=== PATIENT | male | born 1990 | race Caucasian/White ===

== ENCOUNTER 2017-08-13 07:41 | Emergency (ER) | payer OTHER, SELFPAY ==
[2017-08-13 07:41] VITALS: BP 187/116; PULSE 107; RESP 16; TEMP 36.4; O2SAT 96; BMI 40.8
--- NOTE | 2017-08-13 08:04 | ED.DCSUM_ITS ---
- ER Visit Summary Date of Service: 08/13/17 Chief Complaint: [Right eye discomfort and drainage] History of Present Illness: The patient is a 26 M [presents the emergency department with discomfort to his right eye that started yesterday. Patient denies any trauma. Patient denies recent illness. Patient has discomfort when he touches the right upper eyelid. Patient has not had any fever.] Physical Examination: [HEENT-PERRLA, EOMI. Cranial nerves II through XII grossly intact. TMs clear. Mucous membranes moist. No adenopathy. Right upper eyelid has edema and erythema. Patient has some tenderness to palpation over the lateral upper eyelid. No discrete abscess or stye noted at this time. Cardiovascular-regular rate and rhythm without murmur or ectopy Lungs-clear to auscultation, chest wall stable without crepitus or subcu emphysema Abdomen-normoactive bowel sounds, soft, nontender, no rebound or rigidity, no peritoneal signs. Extremities-intact ?4, normal range of motion, normal pulses, atraumatic] Test Results: [None indicated] Emergency Department Course and Treatment: [Patient was started on gentamicin ophthalmic ointment] Treatment Plan: [Patient will start gentamicin ophthalmic ointment and I will write a prescription for Keflex to start only if symptoms progress or worsen. Patient will be given a referral to ophthalmology motion pictures cartoonist for follow-up within next 3-5 days. I suspect patient likely has early beginnings of a stye.] Disposition: [Discharge to home in stable condition] Impression: [Stye right upper eyelid] This note was generated with [employer] dictation software. It may contain incorrect words, spelling, and punctuation that were not noted in review of the chart prior to signing ED Disposition - Plan for ED Patient: Chief Complaint: Eye Problem Referrals: Nato Mahmood MD [Primary Care Provider] -
--- NOTE | 2017-08-13 08:04 | ED.DEP ---
ED Disposition - Plan for ED Patient: Chief Complaint: Eye Problem Instructions: ED Chalazion Prescriptions: Cephalexin [Keflex] 500 mg PO Q6 #40 cap Referrals: Nato Mahmood MD [Primary Care Provider] - Charly Gacria MD [STAFF PHYSICIAN] - 3-5 Days
== END 2017-08-13 08:10 | disposition home or self-care (01) ==
LOC: ED 08:08
PROVIDERS: Emergency Provider Emergency Medicine; Family Provider Family Medicine; PCP Family Medicine
DX: H00.021 Hordeolum internum right upper eyelid (principal); F17.220 Nicotine dependence, chewing tobacco, uncomplicated; Z79.899 Other long term (current) drug therapy
CPT/HCPCS: 99283

== ENCOUNTER → 2018-05-22 08:19 | Outpatient (CLI) | payer OTHER, SELFPAY | PROVIDERS: Family Provider Family Medicine; PCP Family Medicine; Referring Provider Family Medicine; Visit Provider Family Medicine | DX: G47.33 Obstructive sleep apnea (adult) (pediatric) (principal) | CPT/HCPCS: 95806 ==

== ENCOUNTER 2018-06-10 10:54 | Emergency (ER) | payer OTHER, SELFPAY ==
[2018-06-10 10:56] VITALS: BP 181/100; BP 181/105; PULSE 88; PULSE 93; RESP 17; RESP 18; TEMP 36.7; O2SAT 96; O2SAT 98
--- NOTE | 2018-06-10 11:11 | RAD_ITS ---
STUDY: X-RAY - LEFT FOOT CLINICAL: Male, 27 years old. Pain. Possible foreign body. TECHNIQUE: 3 view(s) of the foot. COMPARISON: None. FINDINGS: There is a plantar calcaneal spur. Normal visualized subtalar, talonavicular, calcaneocuboid, tarsal and tarsometatarsal articulations. Normal metatarsi. Normal metatarsophalangeal joint of the great toe. Normal tibial and fibular sesamoid bones. Normal interphalangeal joint of the great toe. Normal phalanges of the great toe. Normal second through fifth metatarsophalangeal joints. Normal interphalangeal joints and phalanges of the lesser toes. The soft tissue structures are unremarkable. RAD/Foot min 3 Views IMPRESSION: No acute abnormality is seen. Electronically Signed: Gus Marcus MD at 11:35 EST , Service support ,
--- NOTE | 2018-06-10 11:16 | ED.VISSUMM ---
- ER Visit Summary Date of Service: 06/10/18 Chief Complaint: Stepped on a sea urchin with left foot pain History of Present Illness: The patient is a 27 M no significant past medical history. Patient was vacationing in [place] and stepped on a severe chin on Friday. He removed several spikes in the bottom of his foot. He has had some pain in the bottom of his foot since that time. He is concerned it may be additional spikes in the bottom of his foot. No discharge. No significant swelling. Physical Examination: Well-appearing young male. Vital signs are well. No acute distress. H EENT exam unremarkable. Neck nontender. Lungs clear to auscultation bilaterally. Heart is regular rate and rhythm no murmur. Abdomen soft and nontender. Patient is moving all 4 extremities. They are neurovascularly intact. The bottom of his left foot and the mid portion area there are multiple small puncture wounds. I do not feel any obvious or see any obvious foreign bodies. There is no obvious cellulitis. Minimal tenderness. No gross bony deformity. Left foot is neurovascularly intact. Normal DP pulse. Test Results: Left foot x-ray 3 views show signs of any type of foreign body. There is a calcification and may be old avulsion fracture or just a calcification. I went over the films with the patient. I explained to him that no foreign bodies were seen. Emergency Department Course and Treatment: Patient be started on Keflex 500 4 times daily for 7 days. Follow-up with a press clippings cutter and paster if not improving. Treatment Plan: Keflex 4 times daily for 7 days. Disposition: Discharge Impression: Left foot puncture wounds after stepping on a see urchin This note was generated with [employer] dictation software. It may contain incorrect words, spelling, and punctuation that were not noted in review of the chart prior to signing ED Disposition - Plan for ED Patient: Referrals: Nato Mahmood MD [Primary Care Provider] -
--- NOTE | 2018-06-10 11:19 | ED.DCSUM_ITS ---
- ER Visit Summary Date of Service: 06/10/18 Chief Complaint: Stepped on a sea urchin with left foot pain History of Present Illness: The patient is a 27 M no significant past medical history. Patient was vacationing in [place] and stepped on a severe chin on Friday. He removed several spikes in the bottom of his foot. He has had some pain in the bottom of his foot since that time. He is concerned it may be additional spikes in the bottom of his foot. No discharge. No significant swelling. Physical Examination: Well-appearing young male. Vital signs are well. No acute distress. H EENT exam unremarkable. Neck nontender. Lungs clear to auscultation bilaterally. Heart is regular rate and rhythm no murmur. Abdomen soft and nontender. Patient is moving all 4 extremities. They are neurovascularly intact. The bottom of his left foot and the mid portion area there are multiple small puncture wounds. I do not feel any obvious or see any obvious foreign bodies. There is no obvious cellulitis. Minimal tenderness. No gross bony deformity. Left foot is neurovascularly intact. Normal DP pulse. Test Results: Left foot x-ray 3 views show signs of any type of foreign body. There is a calcification and may be old avulsion fracture or just a calcification. I went over the films with the patient. I explained to him that no foreign bodies were seen. Emergency Department Course and Treatment: Patient be started on Keflex 500 4 times daily for 7 days. Follow-up with a lining maker if not improving. Treatment Plan: Keflex 4 times daily for 7 days. Disposition: Discharge Impression: Left foot puncture wounds after stepping on a see urchin This note was generated with [employer] dictation software. It may contain incorrect words, spelling, and punctuation that were not noted in review of the chart prior to signing ED Disposition - Plan for ED Patient: Referrals: Nato Mahmood MD [Primary Care Provider] -
--- NOTE | 2018-06-10 11:41 | ED.DEP ---
ED Disposition - Plan for ED Patient: Disposition: Home or Assisted Living Instructions: ED Wound Puncture Foot Prescriptions: Cephalexin [Keflex] 500 mg PO Q6 #30 cap Referrals: Florentin Santa DPM [STAFF PHYSICIAN] - 1 Week if not improving Additional Instructions: Keflex 1 pill 4 times a day due to the puncture wounds and high risk of potential infection. On your x-ray no foreign bodies were noted. Sometimes foreign bodies cannot be picked up on x-ray. If this does not improve you need to follow-up with a local supervisor frame sample and pattern to have him reevaluate your foot.
[2018-06-10 11:46] VITALS: RESP 16
--- NOTE | 2018-06-10 11:47 | ED.RN ---
pt informed of elevated blood pressure, reports history of htn.
== END 2018-06-10 11:48 | disposition home or self-care (01) ==
PROVIDERS: Emergency Provider Emergency Medicine; Family Provider Family Medicine; PCP Family Medicine
DX: S91.332A Puncture wound without foreign body, left foot, initial encounter (principal); F32.9 Major depressive disorder, single episode, unspecified; Z72.0 Tobacco use; Z79.899 Other long term (current) drug therapy; W56.89XA Other contact with other nonvenomous marine animals, initial encounter; Y93.01 Activity, walking, marching and hiking; Y92.832 Beach as the place of occurrence of the external cause; Y99.8 Other external cause status
CPT/HCPCS: 73630; 99281

== ENCOUNTER → 2018-11-02 | Outpatient (CLI) | payer OTHER, SELFPAY ==
[2018-11-02 08:05] LABS: Bacteria 0 SEEN /hpf (None Seen); Mucous, Urine 0 SEEN /hpf (<or=2+); Red Blood Cells-Urine 0 SEEN /hpf (0-5); Squamous Epithelial Cells - UA 0 SEEN /hpf (0-5)
[2018-11-02 08:53] LABS: Absolute Neutrophil Count 3.7 X10^3/uL (2.0-7.7); Basophil# 0.07 X10^3/uL; Basophil% 0.8 % (0-1); Eosinophil# 0.21 X10^3/uL; Eosinophils% 2.5 % (0-5); Hematocrit 48.1 % (40-54); Hemoglobin 16.4 g/dl (13.0-16.5); Lymphocyte % 42.1 % (19-41); Mean Corp Hgb Conc 34.1 g/gl (32-36); Mean Corpuscular Hgb 29.7 pg (27.0-32.0); Mean Corpuscular Volume 87.1 fL (80-94); Mean Platelet Vol. 11.1 fl (6.2-12.0); Monocyte# 0.81 X10^3/uL; Monocyte% 9.7 % (0-10); Neutrophil % 44.5 % (47-70); POSITIVE COUNT NO; POSITIVE DIFFERENTIAL NO; POSITIVE MORPHOLOGY NO; Platelet Count 335 K/mm3 (150-450); RBC Distribution Width CV 12.8 % (11.6-14.6); RBC Distribution Width SD 40.6 fl (35.1-43.9); Red Blood Count 5.52 M/mm3 (4.6-6.2); White Blood Count 8.3 K/mm3 (4.4-11.0)
[2018-11-02 09:21] LABS: Color, Urine Yellow (Yellow); Glucose, Dipstick Normal (Normal); Ketone-Dipstick Negative (Negative); Leukocyte Esterase-Dipstick 25 /ul (Negative); Nitrite-Dipstick Negative (Negative); Occult Blood-Urine Negative /ul (Negative); Protein-Dipstick 15 mg/dl (Negative); Urine Bilirubin Dipstick Negative (Negative); Urine Clarity Clear (Clear); Urine Urobilinogen Normal (Normal)
[2018-11-02 09:28] LABS: ALB/GLOB Ratio 1.2 RATIO (0.9-2.4); AST(SGOT) 33 U/L (15-37); Alanine Aminotransfer ALT/SGPT 93 U/L (16-61); Albumin, Serum 4.3 g/dL (3.2-5.0); Alkaline Phosphatase 81 U/L (45-117); Anion Gap 6 (5-15); BUN 17 mg/dL (7-18); BUN/Creat Ratio 17.6 RATIO (10-20); Calcium,Total 9.4 mg/dL (8.5-10.1); Chloride 102 mmol/L (98-107); Cholesterol 260 mg/dL (200); Creatinine, Serum 0.97 mg/dL (0.70-1.30); EST Glomerular Filtration Rate 97 mL/min (>60); Est Glom Filt Rate - Afr Amer 117 mL/min (>60); Globulin 3.7 g/dL (2.2-4.2); Glucose 87 mg/dL (74-106); High Density Lipoprotein 31 mg/dL; Sodium Level 138 mmol/L (136-145); Triglycerides 454 mg/dL
[2018-11-02 09:29] LABS: White Blood Cells 0-5 SEEN /hpf (0-5)
== END | disposition home or self-care (01) ==
LOC: LAB.FUTURE 08:18
PROVIDERS: Family Provider Family Medicine; PCP Family Medicine; Referring Provider Nurse Practitioner Adult Health; Visit Provider Nurse Practitioner Adult Health
DX: I10 Essential (primary) hypertension (principal); E78.5 Hyperlipidemia, unspecified
CPT/HCPCS: 36415; 80053; 80061; 81001; 85025

== ENCOUNTER → 2019-06-29 | Outpatient (CLI) | payer OTHER, SELFPAY ==
[2019-06-29 16:00] LABS: AST(SGOT) 30 U/L (15-37); Alanine Aminotransfer ALT/SGPT 99 U/L (16-61); Alkaline Phosphatase 71 U/L (45-117); Anion Gap 6 (5-15); BUN 12 mg/dL (7-18); Bilirubin, Direct 0.13 mg/dL (0.00-0.30); Calcium,Total 9.3 mg/dL (8.5-10.1); Chloride 108 mmol/L (98-107); Creatinine, Serum 0.92 mg/dL (0.70-1.30); EST Glomerular Filtration Rate 102 mL/min (>60); Est Glom Filt Rate - Afr Amer 124 mL/min (>60); Globulin 3.4 g/dL (2.2-4.2); Glucose 79 mg/dL (74-106); Potassium 3.7 mmol/L (3.5-5.1); Protein, Total 7.4 g/dL (6.4-8.2); Sodium Level 142 mmol/L (136-145)
== END | disposition home or self-care (01) ==
LOC: MTLAB 11:14
PROVIDERS: PCP Family Medicine; Referring Provider Family Medicine; Visit Provider Family Medicine
DX: I10 Essential (primary) hypertension (principal); R74.8 Abnormal levels of other serum enzymes
CPT/HCPCS: 36415; 80048; 80076

== ENCOUNTER 2023-12-23 17:32 | Inpatient (IN) | payer SELFPAY ==
[2023-12-23 17:39] VITALS: BP 151/100; PULSE 76; RESP 16; TEMP 37; O2SAT 100; BMI 42.1
[2023-12-23] MEDS: Gabapentin 600 MG Tablet PO (21:15)
[2023-12-23] MEDS: oxyCODONE 5 MG Tablet PO (21:15)
[2023-12-23] MEDS: APIXABAN 5 MG TABLET 10 MG PO (21:25)
[2023-12-23 21:58] VITALS: PULSE 96; O2SAT 93
[2023-12-23] MEDS: cycloBENZAPRine HCl 10 MG Tablet PO (22:06)
[2023-12-23] MEDS: Atorvastatin Calcium 20 MG Tablet PO (23:10)
[2023-12-23] MEDS: DULoxetine Hcl 60 MG Capsule PO (23:10)
[2023-12-24 06:00] VITALS: BP 142/86; PULSE 98; RESP 17; TEMP 36.7; O2SAT 96
[2023-12-24 06:23] LABS: Hematocrit 32.1 % (40-54); Hemoglobin 10.4 g/dL (13.0-16.5); Mean Corp Hgb Conc 32.4 g/dL (32-36); Mean Corpuscular Hgb 28.3 pg (27.0-32.0); Mean Corpuscular Volume 87.5 fL (80-94); Mean Platelet Vol. 9.9 fl (6.2-12.0); Platelet Count 290 K/mm3 (150-450); RBC Distribution Width CV 13.3 % (11.6-14.6); RBC Distribution Width SD 41.9 fl (35.1-43.9); Red Blood Count 3.67 M/mm3 (4.6-6.2)
[2023-12-24] MEDS: Gabapentin 600 MG Tablet PO ×3 (06:36→20:09)
[2023-12-24 07:02] LABS: ALB/GLOB Ratio 0.5 RATIO (0.9-2.4); AST(SGOT) 49 U/L (15-37); Alanine Aminotransfer ALT/SGPT 50 U/L (16-61); Albumin, Serum 2.2 g/dL (3.2-5.0); Alkaline Phosphatase 170 U/L (45-117); Anion Gap 7 (5-15); BUN 5 mg/dL (7-18); BUN/Creat Ratio 7.8 RATIO (10-20); Calcium,Total 8.4 mg/dL (8.5-10.1); Chloride 109 mmol/L (98-107); Creatinine, Serum 0.64 mg/dL (0.70-1.30); EST Glomerular Filtration Rate 151 mL/min (>60); Est Glom Filt Rate - Afr Amer 182 mL/min (>60); Globulin 4.4 g/dL (2.2-4.2); Glucose 92 mg/dL (74-106); Magnesium 2.2 mg/dL (1.6-2.6); Phosphorus 3.6 mg/dL (2.5-4.9); Protein, Total 6.6 g/dL (6.4-8.2); Sodium Level 140 mmol/L (136-145)
[2023-12-24] MEDS: APIXABAN 5 MG TABLET 10 MG PO ×2 (08:06→20:07)
[2023-12-24] MEDS: Tamsulosin HCl 0.4 MG Capsule PO (08:06)
[2023-12-24] MEDS: oxyCODONE 5 MG Tablet PO ×2 (08:06→14:13)
[2023-12-24] MEDS: Lisinopril 10 MG Tablet PO (08:06)
[2023-12-24] MEDS: hydroCHLOROthiazide 12.5mg 12.5 MG PO (08:07)
[2023-12-24 09:00] VITALS: O2SAT 94
[2023-12-24] MEDS: cycloBENZAPRine HCl 10 MG Tablet PO ×3 (11:42→23:34)
--- NOTE | 2023-12-24 15:06 | HP.PCM_ITS ---
[facility][1] Date of Admission: 12/23/23 Date of Service: 12/24/23 Chief Complaint: Debility secondary to spinal canal stenosis with myelopathy/neuropathy and recent cervical and thoracic spinal surgery. [facility] Nikolas MARKS, is a 33 YO M with a PMH of anxiety/depression, hypertension, untreated obstructive sleep apnea, chronic back pain, multiple thoracic disc herniations on MRI done in 2017 with compression of the cord at T5-T6 and T10- T11 with no signs of myelomalacia of the cord and L4-L5 mild endplate spondylosis with central disc herniation of extrusion type extending caudally causing indentation of the ventral aspect of the thecal sac with impingement of the left L5 nerve root in the left lateral recess also on a MRI done in 2017. He had been seeing a chiropractor, Dr. Claribel Ramey, and Dr. Graff from orthopedics. On 12/09/2023 he presented to [facility] Complaining of back pain associated with bilateral leg weakness and numbness for the preceding few months. He had had several falls due to his legs giving out. At the time pf presentation he was not able to move his legs. He denied any urine or fecal incontinence and had no saddle anesthesia. He was having urine retention and required straight caths. MRI showed severe spinal canal stenosis at T10-T11, moderate to severe canal stenosis at C5-C6 and C6-C7 and moderate to severe stenosis at L3-L4. He was evaluated by orthopedic spine surgery. On 12/10/23 he had C5-T1 fusion with C5-C7 laminectomy, T10-T12 laminectomy and fusion. Post op complications included BL PE. Venous ultrasounds of the lower extremities was negative. He developed HIT on Heparin and was transitioned to bivalirudin. He also developed a catheter related urinary tract infection with septic shock (requiring pressors) which was treated with intravenous ceftriaxone initially. Prior to discharge from [facility] He was transitioned to [facility]. While at [facility] he was seen by PT/OT and acute inpt rehab was recommended at [place]. Prior to discharge he failed a voiding trial and was placed on Flomax by urology. He was transferred to [facility] inpt rehab on 12/23/23 for 3 hours of therapy daily to restore function/independence at or near his level prior to cord compression. Bruno catheter was in place at [facility]. He has numbness in both LE's and BL leg weakness, L>R leg. He has no fecal incontinence. Tells me that he is having regular BM's. All lab drawn this morning was personally reviewed. The white blood cell count is 8.0 and hemoglobin is 10.4. He has normochromic normocytic indices and platelets are normal at 290,000. Sodium is 140 and potassium is low at 3.0. The BUN is 5 with a creatinine of 0.64. Calcium phosphorus and magnesium are within normal limits. Bilirubin is normal but the AST is mildly elevated at 49 with a normal ALT of 50. Alkaline phosphatase is mildly increased at 170. The overnight trending pulse ox was reviewed. The pulse ox was 90 or above for 61.73% of the time he was monitored. Heart rate was greater than 100 for over 4 hours. He had 3 desaturation events lasting a total of 4 minutes and 26 seconds. He had a sleep study at [facility] in the past and was to see a wire stitcher but, he failed to follow up. [facility] Medical History (Updated 12/26/23 @ 15:[address] Sis Cooper, ) Tobacco dependence Dyslipidemia Anxiety and depression Neurogenic bladder HIT (heparin-induced thrombocytopenia) Septic shock Lumbar disc herniation Hand, foot and mouth disease Segmental and somatic dysfunction of cervical region Segmental and somatic dysfunction of lumbar region Segmental and somatic dysfunction of thoracic region Segmental and somatic dysfunction of pelvic region Obstructive sleep apnea Morbid obesity mole removal back pain neck pain shoulder pain Acute hemorrhoid Hypertension Home Medications ?Medication ?Instructions ?Recorded ?Last Taken ?Type duloxetine 60 mg capsule,delayed 60 mg PO DAILY Depression 08/13/17 Unknown History release cyclobenzaprine 10 mg tablet 10 mg PO TID PRN PRN muscle spasm 12/23/23 Unknown History cyclobenzaprine 10 mg tablet 10 mg PO TID PRN muscle spasm 12/23/23 Unknown History gabapentin 300 mg capsule 600 mg PO Q8H Nerve pain 12/23/23 Unknown History lisinopril 10 1 tab PO DAILY BP 12/23/23 Unknown History mg-hydrochlorothiazide 12.5 mg tablet oxycodone 5 mg tablet 5 mg PO Q6H Pain 12/23/23 Unknown History rosuvastatin 10 mg tablet 10 mg PO DAILY Cholestrol 12/23/23 Unknown History sennosides 8.6 mg-docusate sodium 2 tab-cap PO BID Stool softner 12/23/23 Unknown History 50 mg tablet (Senexon-S) tamsulosin 0.4 mg capsule (Flomax) 0.4 mg PO DAILY Urine retention 12/23/23 Unknown History Allergy/AdvReac Type Severity Reaction Status Date / Time heparin AdvReac Severe Heparin Verified 12/23/23 17:54 induced thrombocytopenia Surgical History (Updated 12/26/23 @ 15:[address] Sis Cooper DO) Status post laminectomy with spinal fusion Social History (Updated 12/26/23 @ 15:[address] Sis Cooper DO) household members: family housing: house number of children: 1 current occupational status: employed Smoking Status: Current every day smoker tobacco type: cigarettes alcohol intake: never ROS Constitutional Constitutional: Reports frequent falls, snoring, stops breathing during sleep and weakness; Denies anorexia, change in weight, chills, fatigue, fever(s), headache(s) or night sweats Eyes Eyes: Denies blurry vision, change in vision, eye pain or loss of vision ENT HEENT: Denies abnormal hearing, dysphagia, headache(s), hearing loss, nasal congestion or sore throat Cardiovascular Cardiovascular: Reports dyspnea on exertion and edema; Denies chest pain, lightheadedness, orthopnea, palpitations, paroxysmal nocturnal dyspnea or syncope Respiratory/Chest Respiratory/Chest: Reports dyspnea on exertion; Denies cough, dyspnea, shortness of breath at rest, shortness of breath with exertion or wheezing Gastrointestinal Gastrointestinal: Denies abdominal pain, constipation, diarrhea, dyspepsia, hematemesis, hematochezia, nausea or vomiting Genitourinary Genitourinary: Reports other Details: Urine retention secondary to neurogenic bladder. Bruno catheter is in place ; Denies dysuria, hematuria, nocturia, urinary frequency, urinary hesitancy, urinary incontinence or urinary urgency Musculoskeletal Musculoskeletal: Reports back pain, muscle cramps, muscle spasms, muscle weakness, neck pain, numbness, radiating pain into limb and tingling; Denies joint pain or joint swelling Integumentary Integumentary: Reports other Details: Scattered petechiae and bruising secondary to HIT ; Denies jaundice, rash or skin pain Neurologic Neurologic: Reports focal weakness and paresthesias; Denies confusion, disequilibrium, dizziness, headache(s), seizures or tremor(s) Psychiatric Psychiatric: Reports anxiety and depression; Denies homicidal ideation or suicidal ideation Endocrine Endocrinology: Denies change in body appearance, polydipsia or polyuria Hematologic/Lymphatic Hematologic/Lymphatic: Denies easy bleeding, easy bruising or lymphadenopathy Allergic/Immunologic Allergic/Immunologic: Denies rhinitis, eczemia or asthma Vital Signs Vital Signs Vital Signs: 12/23/23 17:39 12/23/23 21:58 12/23/23 22:00 Temperature 98.6 F Temperature Source Temporal Pulse Rate 76 96 Pulse Strength Normal (2+) Respiratory Rate 16 Blood Pressure 151/100 H Blood Pressure Mean 117 Blood Pressure Source Monitor Blood Pressure Position Semi-Fowlers Blood Pressure Location Right Arm Pulse Ox 100 93 Oxygen Delivery Method Room Air Fraction of Inspired Oxygen (FIO2) 21 12/24/23 06:00 12/24/23 09:00 Temperature 98.0 F Temperature Source Oral Pulse Rate 98 Pulse Strength Respiratory Rate 17 Blood Pressure 142/86 H Blood Pressure Mean 104 Blood Pressure Source Monitor Blood Pressure Position Sitting Blood Pressure Location Right Arm Pulse Ox 96 94 Oxygen Delivery Method Room Air Fraction of Inspired Oxygen (FIO2) Weight Weight: 319 lb 7.197 oz Body Mass Index (BMI) 42.1 Physical Exam Const alert, oriented x3 and no apparent distress Constitutional Narrative: Making good eye contact, appropriate. [place] J collar is in place. General Appearance: cooperative, comfortable and well kempt HEENT HEENT Narrative: Dry mucous membranes, no evidence of thrush. Eyes PERRL, EOMs intact bilaterally, conjunctivae normal and no scleral icterus Eyes Narrative: No discharge from the eyes and no mattering of the eyelashes. Neck no lymphadenopathy, supple, no JVD and no carotid bruits Neck Narrative: [place] J collar is present. Chest Chest Narrative: Diminished throughout, likely secondary to body habitus. No crackles and no wheezes. No conversational dyspnea. Not tachypneic. Chest: symmetrical chest wall rise Resp normal respiratory effort, no use of accessory muscles and clear to auscultation bilaterally Resp Narrative: Not tachypneic and no conversational dyspnea. Effort and Inspection: able to speak in complete sentences Cardio regular rate, regular rhythm, S1 normal heart sound, S2 normal heart sound, no murmurs, no rub and no gallops Cardio Narrative: Heart sounds are somewhat distant. Resting heart rate is increased but he is not currently tachycardic at rest but, the resting HR is higher than it should be. GI normal to inspection, nondistended, normoactive bowel sounds and non-tender GI Narrative: No guarding with palpation. Narrative: Bruno catheter is in place. The urine in the Bruno catheter is pale yellow and clear. Back/Spine Back/Spine Narrative: He is in a [place] J collar and will be for a total of 6 weeks. Has follow-up scheduled with orthopedic spine surgery. Having pain in the mid thoracic area and posterior cervical area. Extremity Extremity Narrative: No clubbing or cyanosis. Mild distal lower extremity edema. David wrap's are in place. Skin Skin Narrative: No rashes, no skin breakdown. Wound Narrative: The incisions are intact with no dehiscence, no jorgito-incisional erythema and no discharge. Talisha were removed last night. Neuro oriented x3 and CN's II-XII intact bilaterally Neuro Narrative: Bilateral lower extremity weakness, right greater than left. Having tingling/paresthesias in both lower extremities. Having some return of sensation in the right leg, especially the foot and describes as burning. Decreased sensation in both lower extremities. No tremors. Having some myospasm in his distal lower extremities. This improves with cyclobenzaprine. Bruno catheter is in place for neurogenic bladder. Psych affect normal Psych Narrative: Appropriate, making good eye contact. Able to stay on topic and focus. No flight of ideas. Does not appear anxious or depressed. Conversant and relating well to staff. Results Lab / Micro Data 12/24/23 05:16 12/24/23 05:16 Labs: Laboratory Results - last 24 hr 12/24/23 05:16: WBC 8.0, RBC 3.67 L, Hgb 10.4 L, Hct 32.1 L, MCV 87.5, MCH 28.3, MCHC 32.4, RDW Std Deviation 41.9, RDW Coeff of Eduardo 13.3, Plt Count 290, MPV 9.9, Sodium 140, Potassium 3.0 L, Chloride 109 H, Carbon Dioxide 24.0, Anion Gap 7, BUN 5 L, Creatinine 0.64 L, Est GFR (MDRD) Af Amer 182, Est GFR (MDRD) Non-Af 151, BUN/Creatinine Ratio 7.8 L, Glucose 92, Calcium 8.4 L, Phosphorus 3.6, Magnesium 2.2, Total Bilirubin 0.20, AST 49 H, ALT 50, Alkaline Phosphatase 170 H, Total Protein 6.6, Albumin 2.2 L, Globulin 4.4 H, Albumin/Globulin Ratio 0.5 L Assessment & Plan Assessment/Plan (1) Physical debility: (2) Myelopathy concurrent with and due to spinal stenosis of thoracic region: (3) Myelopathy concurrent with and due to spinal stenosis of cervical region: (4) Radicular pain of both lower extremities: (5) Neuropathy: (6) Neurogenic bladder: (7) Status post laminectomy with spinal fusion: (8) Septic shock: (9) Acute blood loss as cause of postoperative anemia: (10) Hypokalemia: (11) Abnormal LFTs: (12) HIT (heparin-induced thrombocytopenia): (13) Bilateral pulmonary embolism: (14) Hypertension: QUALIFIERS: Hypertension type: primary hypertension Qualified Code(s): I10 - Essential (primary) hypertension (15) Obstructive sleep apnea: PLAN: Never treated (16) Morbid obesity: PLAN: BMI is 41. (17) Anxiety and depression: PLAN: On Cymbalta. (18) Tobacco dependence: PLAN: Cigarettes PLAN: Plan PLAN PT for gait stability OT for ADL's Analgesics as needed Bowel protocol Fall precautions Assess for Anxiety/Depression GI prophylaxis -not necessary at this time. He has no history of peptic ulcer disease and is asymptomatic with no nausea/vomiting/epigastric pain/heartburn. DVT prophylaxis with continue Eliquis (currently on loading dose) Follow up with PCP, sleep lab, orthopedic spine surgery, urology if needed following DC from [facility] AM lab including CMP, CBC, Mag and Phos-all personally reviewed Discussed weight loss No recent lipid panel so will order 1 fasting Increase the pain medication at bedtime for better sleep/comfort Voiding trial on Friday Smoking cessation counseling given Supplement potassium and recheck a BMP on Friday Continue tamsulosin 0.4 mg daily May need to follow up with pulmonary medicine at a later date due to the mulitple BL PE's Will need a split study for untreated LENI. 1. Do you snore loudly? Yes 2. Do you often feel tired, fatigued or sleepy during the day? Yes 3. Has anyone ever observed you stop breathing during sleep? Yes 4. Do you have (or are you being treated for) HTN? Yes BMI 41 AGE 33 Neck circumference can not measure due to the presence of [place] J collar Gender male Total 6?1 for neck circumference..... Will measure when we are able to remove the collar. Charges/Coding Visit Charges Inpatient E&M: 27959 Init Hosp L3
[2023-12-24] MEDS: SimETHICONE 80 MG Chewable Tablet PO ×2 (17:25→20:08)
[2023-12-24 17:52] VITALS: BP 133/70; PULSE 98; RESP 18; TEMP 36.7; O2SAT 96
[2023-12-24 19:45] VITALS: PULSE 98; O2SAT 96
[2023-12-24 20:04] VITALS: O2SAT 96
[2023-12-24] MEDS: DULoxetine Hcl 30 MG Capsule 90 MG PO (20:08)
[2023-12-24] MEDS: tiZANidine HCl 2 MG Tablet 4 MG PO (20:08)
[2023-12-24] MEDS: oxyCODONE 5 MG Tablet 10 MG PO (20:08)
[2023-12-24] MEDS: Atorvastatin Calcium 20 MG Tablet PO (20:09)
[2023-12-25] MEDS: cycloBENZAPRine HCl 10 MG Tablet PO (05:37)
[2023-12-25] MEDS: Gabapentin 600 MG Tablet PO ×2 (05:37→13:43)
[2023-12-25] MEDS: oxyCODONE 5 MG Tablet PO ×2 (05:37→11:54)
[2023-12-25 05:48] VITALS: BP 138/82; PULSE 105; RESP 17; TEMP 36.6; O2SAT 92
[2023-12-25] MEDS: APIXABAN 5 MG TABLET 10 MG PO ×2 (08:22→21:04)
[2023-12-25] MEDS: SimETHICONE 80 MG Chewable Tablet PO ×4 (08:22→21:04)
[2023-12-25] MEDS: Lisinopril 10 MG Tablet PO (08:22)
[2023-12-25] MEDS: Tamsulosin HCl 0.4 MG Capsule PO (08:22)
[2023-12-25] MEDS: hydroCHLOROthiazide 12.5mg 12.5 MG PO (08:22)
--- NOTE | 2023-12-25 09:53 | CASEMGMT ---
Social Work SW met with patient to complete initial assessment. Introduced self and role. Verified/updated contacts. Pt denies wanting to complete advanced directives. SW discussed finances and health insurance options with pt. Pt explained he was laid off from job at the [employer] and health insurance was discontinued effective April 21, 2023. Pt has 60 days to enroll in [employer] insurance, however, missed deadline. 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 Pt has been out of health insurance for entirety of 2023 and been paying OOP for medical needs. Pt plans to enroll in [employer] insurance during open enrollment period come February 19. SW educated to pt's change in medical status as a qualifying life event to currently enroll in [employer] insurance, however, will need to confirm with further research. Pt appreciative of assistance. Pt inquired about short-term disability. SW educated to enrolling via Medicare.gov, and if approved, it will take several months to start receiving benefits. Pt explained a [employer] account has been started, family has been assisting and pt/ are using their savings accounts. SW offered ongoing assistance with finances and emotional support as needed. Pt appreciative. -- SW researched via [employer], asked pt qualifying questions and appears per website, pt is likely eligible to enroll in insurance presently under a qualifying life event. SW provided pt with instructions and INN insurance options for [facility]. Pt very appreciative and plans to pursue. SW will continue to follow. Monserrat Sadler, ASHLEY DAVIDW
--- NOTE | 2023-12-25 12:56 | CASEMGMT ---
Social Work IDT met with patient and for Team meeting. Discussed patient's progress in PT/OT/SN. Pt is self-pay d/t lapse in health insurance coverage. SW addressed insurance during initial assessment and will assist as able. ordering a sleep study at DC and SW to coordinate O2 at nighttime at DC, if indicated. OTIS will continue to follow for DC planning and support. Monserrat Sadler, CHEMISTRY LAB INSTRUCTOR SATURATOR TENDER
--- NOTE | 2023-12-25 16:36 | REHABEVAL_ITS ---
Admission Information Primary Diagnosis:: Debility secondary to myelopathy/neuropathy with recent spinal fusion/laminectomy Status Changes from Prescreening?: No changes Identified Actual Problem List:: Infection (Recent septic shock secondary to urine retention with urinary tract infection.), Falls, Skin Intergrity, Depression, Bladder Incontinence (Neurogenic urinary incontinence and retention), Alteration in Sleep, Mobility Impaired, Self Care Deficit, Alteration/ Air Exchange (Bilateral pulmonary emboli in multiple lobes) and Alteration-Leisure Activ. Potential Problem List:: DVT, Bleeding, Infection, UTI, Aspiration, Falls, Skin Integrity and Depression Risk of Complications DVT: SHYANNE Hose (Or bilateral David wraps for compression) and - (Eliquis) Bleeding: Monitor Lab Values, Nursing to Teach Precautions for anti-coagulation therapy., Wound, if applicable, to be assessed every shift. and Stroke patients assessed for lethargy or change in status. Infection: Clinical Staff to Monitor for S/S of infection: and S/S of infection include fever, redness, warmth, etc. Urinary Tract Infection: Monitor for frequency, burning, discomfort, or incon tinence. and Nursing will obtain urine sample for urinalysis and C&S when ordered. Aspiration: Clinical staff will monitor for coughing, drooling, congestion., Speech will evaluate swallowing and dsyphasia. and Nursing will monitor patient swallowing during meals. Falls: Patient will be evaluated for Fall Precautions and Patient will be placed on Fall Precautions as indicated per protocol. Skin Breakdown: Nursing will assess skin daily using assessment tool. and Nursing will place on Skin Breakdown Precautions as indicated. Pain: Clinical staff will assess patient's pain level per protocol., Medications will be given, if needed, and the pain level reassessed. and Other methods: Massage, distraction, decrease stimulus, etc. used PRN. Plan of Care Patient requires physician specializing in physical medicine and rehab oversight to provide close medical supervision of rehab issues including: Pain Management, Sleep Problems, Bowel and Bladder, Medical and co-morbidity Management, DVT prophylaxis, Rehabilitation Leadership and Coordination of treatment team Patient needs Physical Therapy: For a minimum of 1 hour and At least 5 out of 7 days Patient needs Physical Therapy to improve:: Mobility, Strengthening, Transfers, Stretching, ROM, Endurance, Stairs, Gait and Balance Patient needs Occupational Therapy: For a minimum of 1 hour and At least 5 out of 7 days Patient needs Occupational Therapy to improve ADL's incl.: Eating, Grooming, Bathing, Dressing, Toileting, Toilet transfers, Community Reintegration, Higher functioning activities, Household tasks, Adaptive Equipment, Splinting and Other activities as determined Patient requires 24/7 Rehabilitation Nursing for: Pain Issues, Identifying and preventing risk factors, Monitoring and reporting current medical conditions, Assisting with ambulation, transfer, and all ADL's, Teaching patients about disease process and medications, Family teaching, Providing safe environment, Bowel and Bladder Issues, Skin integrity and Medication Management Patient needs Energy Sales Broker/ Case Management for: Discharge Planning, Arranging Home Equipment or Services and Family Interventions Patient needs Dietary and Nutrition Services for: Adequate Nutrition, Nutritional Supplements and Nutritional Education Goals Goals Patient will remain: free from falls Patient will perform eating at: MOD I level of assist. Patient will perform bed mobility at: MOD I level of assist. Patient will complete transfers from bed to chair at: MOD I level of assist. Patient will ambulate: - (Minimum of 300 feet with least restrictive device at standby assist) Patient will complete upper body dressing at: MOD I level of assist. Patient will complete lower body dressing at: MOD I level of assist. (With adaptive equipment as needed) Patient will complete toilet transfer at: MOD I level of assist. Patient will complete toileting at: MOD I level of assist. Patient will perform bathing at: MOD I level of assist. (Will complete upper body bathing independently and be mod I for lower body bathing with adaptive equipment as necessary.) Patient will perform Tub/Shower transfer at: - (Supervision with DME as needed.) Patient will complete grooming at: MOD I level of assist. Patient will complete home management skills at: MOD I level of assist. Patient will achieve: - (At least 6 steps with 1 handrail at mod I) Patient will have pain level of: of 3 or less Patient's skin will: remain intact Patient will receive: adequate nutrition. Discharge Planning Pt Prognosis for Sig. Practical Improv. w/in Reasonable Time: Good Estimated Length of stay (days): 28
--- NOTE | 2023-12-25 16:37 | PN_ITS ---
Subjective Subjective Rice was seen on team rounds today. His Valerie was present in the room. Afebrile VSS -resting heart rate is still elevated into the 90s and up to 105 more likely than not secondary to multiple bilateral pulmonary emboli. BP is stable. Maintaining appropriate oxygen saturation on RA Oral intake - FOOD good FLUIDS good Discussed with nursing - no problems that need addressed Reviewed the THERAPY notes Medication list reviewed. I reviewed the overnight trending pulse ox and it is abnormal with desaturation events. I reviewed the old home sleep study he had with [facility] in the past and he has obstructive sleep apnea. He did not follow-up with pulmonology to be provided treatment. He is complaining of more pain in his feet, especially the right foot, with weightbearing. Denies chest pain, cough, lightheadedness, vertigo, nausea/vomiting/abdominal pain, constipation/diarrhea, suprapubic pain and calf tenderness. He is ambulating now with a front wheeled walker. Weakness remains more prominent in the left lower extremity than the right. Still numb to pinprick in both lower extremities. Muscle spasms in the lower extremities are controlled with Flexeril. Slept better last night with adjustments to the pain medication regimen. Objective Data Objective Data Vital Signs: Vital Signs Temp Pulse Resp BP Pulse Ox O2 Del Method O2 Flow Rate 97.9 F 105 H 17 138/82 H 92 Room Air 2 12/25/23 05:48 12/25/23 05:48 12/25/23 05:48 12/25/23 05:48 12/25/23 05:48 12/25/23 10:00 12/25/23 06:27 FiO2 21 12/23/23 21:58 Oxygen Flow Rate (L/min) 2 Oxygen Delivery Method Room Air Weight: 319 lb 7.197 oz Body Mass Index (BMI) 42.1 Intake & Output: Intake and Output for Last 24 Hours 12/23/23 12/24/23 12/25/23 23:59 23:59 23:59 Intake Total 3420 / 3420 1580 / 1580 Output Total 3375 / 3375 1875 / 1875 Balance 45 / 45 -295 / -295 Lab / Micro Data 12/24/23 05:16 12/24/23 05:16 Physical Exam Const alert and oriented x3 General Appearance: cooperative HEENT HEENT Narrative: Dry mucous membranes, no evidence of thrush. Neck Neck Narrative: [place] J collar is present. Resp normal respiratory effort, no use of accessory muscles and clear to auscultation bilaterally Resp Narrative: Not tachypneic and no conversational dyspnea. Effort and Inspection: able to speak in complete sentences Cardio regular rate, regular rhythm, S1 normal heart sound, S2 normal heart sound, no murmurs, no rub and no gallops Cardio Narrative: Heart sounds are somewhat distant. Resting heart rate is increased but he is not currently tachycardic at rest but, the resting HR is higher than it should be. GI normal to inspection, nondistended, normoactive bowel sounds and non-tender GI Narrative: No guarding with palpation. Narrative: Bruno catheter is in place. The urine in the Bruno catheter is pale yellow and clear. Extremity Extremity Narrative: Mild distal lower extremity edema. David wrap's are in place. Skin Skin Narrative: No rashes, no skin breakdown. Wound Narrative: The incisions are intact with no dehiscence, no jorgito-incisional erythema and no discharge. Talisha were removed last night. 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 Continue therapy 2. Increase the gabapentin at bedtime to 800 mg 3. Spoke to sleep lab and will get a overnight split sleep study hopefully on the night of discharge. Will update them when I have a tentative plan for a discharge date. 4. Recheck a BMP and HH on Friday 5. Consider using something other than HCTZ for BP control........libra in light of hypokalemia BP is mildly elevated 6. Voiding trial in the a.m. Charges/Coding Visit Charges Inpatient E&M: 84811 Subs Hosp L2
[2023-12-25 18:00] VITALS: BP 102/75; PULSE 95; RESP 18; TEMP 37.1; O2SAT 93
[2023-12-25 21:00] VITALS: PULSE 95; RESP 18; O2SAT 93
[2023-12-25] MEDS: DULoxetine Hcl 30 MG Capsule 90 MG PO (21:04)
[2023-12-25] MEDS: Atorvastatin Calcium 20 MG Tablet PO (21:04)
[2023-12-25] MEDS: Gabapentin 800 MG Tablet PO (21:04)
[2023-12-25] MEDS: tiZANidine HCl 2 MG Tablet 4 MG PO (21:04)
[2023-12-25] MEDS: oxyCODONE 5 MG Tablet 10 MG PO (21:05)
[2023-12-26 06:00] VITALS: BP 133/78; PULSE 105; RESP 16; TEMP 36.5; O2SAT 92
[2023-12-26] MEDS: Gabapentin 600 MG Tablet PO ×2 (06:31→13:28)
[2023-12-26 07:09] VITALS: BMI 41.1
[2023-12-26] MEDS: SimETHICONE 80 MG Chewable Tablet PO ×4 (08:23→21:52)
[2023-12-26] MEDS: hydroCHLOROthiazide 12.5mg 12.5 MG PO (08:24)
[2023-12-26] MEDS: APIXABAN 5 MG TABLET 10 MG PO ×2 (08:24→21:52)
[2023-12-26] MEDS: Tamsulosin HCl 0.4 MG Capsule PO (08:24)
[2023-12-26] MEDS: Lisinopril 10 MG Tablet PO (08:25)
[2023-12-26] MEDS: Nystatin 500,000 UNIT/5 ML PO.SYRINGE (WCH) 500000 UNIT PO ×4 (08:26→21:53)
[2023-12-26] MEDS: oxyCODONE 5 MG Tablet PO ×2 (08:27→14:58)
[2023-12-26 10:00] VITALS: PULSE 90
[2023-12-26] MEDS: cycloBENZAPRine HCl 10 MG Tablet PO (13:30)
[2023-12-26] MEDS: Potassium Chloride Oral Tablet 20 MEQ 40 MEQ PO (16:44)
[2023-12-26 17:34] VITALS: BP 125/70; PULSE 99; RESP 18; TEMP 37.2; O2SAT 94
[2023-12-26] MEDS: tiZANidine HCl 2 MG Tablet 4 MG PO (21:52)
[2023-12-26] MEDS: Gabapentin 800 MG Tablet PO (21:52)
[2023-12-26] MEDS: Atorvastatin Calcium 20 MG Tablet PO (21:52)
[2023-12-26] MEDS: DULoxetine Hcl 30 MG Capsule 90 MG PO (21:53)
[2023-12-26] MEDS: oxyCODONE 5 MG Tablet 10 MG PO (21:53)
[2023-12-26 22:00] VITALS: PULSE 99; RESP 18; O2SAT 94
--- NOTE | 2023-12-27 05:59 | NURSING ---
liquid stool sent for c-diff
[2023-12-27 06:00] VITALS: BP 109/72; PULSE 99; RESP 18; TEMP 36.8; O2SAT 91
[2023-12-27] MEDS: Gabapentin 600 MG Tablet PO ×2 (06:11→13:13)
[2023-12-27] MEDS: cycloBENZAPRine HCl 10 MG Tablet PO (06:12)
[2023-12-27] MEDS: oxyCODONE 5 MG Tablet PO ×2 (06:23→13:13)
[2023-12-27 07:55] LABS: Anion Gap 7 (5-15); BUN 9 mg/dL (7-18); BUN/Creat Ratio 12.9 RATIO (10-20); Calcium,Total 9.4 mg/dL (8.5-10.1); Chloride 105 mmol/L (98-107); Cholesterol 171 mg/dL (200); EST Glomerular Filtration Rate 136 mL/min (>60); Est Glom Filt Rate - Afr Amer 165 mL/min (>60); Estimated Creatinine Clearance 217.54 ml/min; Glucose 100 mg/dL (74-106); High Density Lipoprotein 29 mg/dL; Potassium 3.2 mmol/L (3.5-5.1); Sodium Level 138 mmol/L (136-145); Triglycerides 275 mg/dL; Uric Acid 7.8 mg/dL (3.5-7.2); Very Low Density Lipoprotein 55 mg/dL (5-40)
--- NOTE | 2023-12-27 08:58 | PCM.PROGNOTE ---
Subjective Subjective Afebrile Vital signs stable. Resting heart rate is at the higher limits of normal but this is most likely secondary to multiple bilateral pulmonary emboli. Maintaining appropriate oxygen saturation on room air while awake. Wearing O2 at night due to abnormal overnight trending pulse ox, history of untreated sleep apnea and desaturation events. Good food and fluid intake. Continues to have loose stool with some incontinence. Having ARMANDO. Denies chest pain. Denies nausea/vomiting/abdominal pain/suprapubic pain. C. difficile PCR is positive. Toxin is pending. All lab drawn this morning was personally reviewed. Sodium is 138 and the potassium is 3.2, up from 3.0 after supplementation. The BUN is 9 and the creatinine is 0.7. Uric acid is elevated at 7.8. Calcium is normal. Triglycerides are 275 and the total cholesterol is 171 with an LDL of 87 and an HDL of 29. Objective Data Objective Data Vital Signs: Vital Signs Temp Pulse Resp BP Pulse Ox O2 Del Method O2 Flow Rate 98.2 F 99 18 109/72 91 Room Air 2 12/27/23 06:00 12/27/23 06:00 12/27/23 06:00 12/27/23 06:00 12/27/23 06:00 12/27/23 06:00 12/25/23 06:27 FiO2 21 12/23/23 21:58 Oxygen Flow Rate (L/min) 2 Oxygen Delivery Method Room Air Weight: 311 lb 4.683 oz Body Mass Index (BMI) 41.1 Intake & Output: Intake and Output for Last 24 Hours 12/25/23 12/26/23 12/27/23 23:59 23:59 23:59 Intake Total 2490 / 2490 1430 / 1430 460 / 460 Output Total 2525 / 2525 2650 / 2650 1100 / 1100 Balance -35 / -35 -1220 / -1220 -640 / -640 Lab / Micro Data 12/29/23 11:46 12/29/23 05:45 Labs: Laboratory Results - last 24 hr 12/27/23 07:05: Sodium 138, Potassium 3.2 L, Chloride 105, Carbon Dioxide 26.0, Anion Gap 7, BUN 9, Creatinine 0.70, Estim Creat Clear Calc 217.54, Est GFR (MDRD) Af Amer 165, Est GFR (MDRD) Non-Af 136, BUN/Creatinine Ratio 12.9, Glucose 100, Uric Acid 7.8 H, Calcium 9.4, Triglycerides 275 H, Cholesterol 171, LDL Cholesterol 87, VLDL Cholesterol 55 H, HDL Cholesterol 29 L Micro: Microbiology 12/27/23 05:57 Stool Clostridioides difficile (PCR) - Final Physical Exam Const alert and oriented x3 Constitutional Narrative: Having discomfort in his legs. Complaining today of pain in the dorsum of the right foot. General Appearance: cooperative Resp clear to auscultation bilaterally Resp Narrative: Not tachypneic at rest. Denies shortness of breath at rest but does get short of breath with exertion and the heart rate increases. Effort and Inspection: Negative for tachypneic Cardio regular rhythm, no murmurs, no rub and no gallops Cardio Narrative: Tachycardic with exertion. No ectopy. GI GI Narrative: The abdomen is not distended and it is soft. He has no guarding with palpation. Bowel sounds are not hyperactive. Extremity Extremity Narrative: Edema in the lower extremities is down somewhat today. David wrap's are in place. Assessment & Plan Assessment/Plan (1) Physical debility: (2) Myelopathy concurrent with and due to spinal stenosis of thoracic region: (3) Myelopathy concurrent with and due to spinal stenosis of cervical region: (4) Radicular pain of both lower extremities: (5) Neuropathy: (6) Neurogenic bladder: PLAN: Resolved (7) Status post laminectomy with spinal fusion: (8) Acute blood loss as cause of postoperative anemia: PLAN: stable (9) Hypokalemia: (10) Bilateral pulmonary embolism: (11) Obstructive sleep apnea: (12) C. difficile colitis: (13) Acute gouty arthritis: (14) Hyperuricemia: PLAN: Plan 1. Continue therapy 2. Discontinue hydrochlorothiazide due to persistent hypokalemia. Continue lisinopril. Supplement potassium. Recheck a BMP on Friday 3. Uric acid is elevated and he has pain across the dorsum of the right foot which is how his gout usually presents. Will prescribe prednisone 20 mg daily x 3 days. Will discuss with him how many recurrences he has in a year. May benefit from allopurinol going forward. 4. Start vancomycin 125 mg every 6 hours x 10 days 5. Start lactobacillus 1 p.o. twice daily Charges/Coding Visit Charges Inpatient E&M: 85288 Subs Hosp L1
[2023-12-27] MEDS: Potassium Chloride Oral Tablet 20 MEQ PO ×2 (09:48→17:54)
[2023-12-27] MEDS: SimETHICONE 80 MG Chewable Tablet PO ×4 (09:48→21:35)
[2023-12-27] MEDS: Lactobacillis Acidophilus 1 CAP PO ×2 (09:48→21:33)
[2023-12-27] MEDS: APIXABAN 5 MG TABLET 10 MG PO ×2 (09:49→21:34)
[2023-12-27] MEDS: predniSONE 20 MG Tablet PO (09:49)
[2023-12-27] MEDS: Nystatin 500,000 UNIT/5 ML PO.SYRINGE (WCH) 500000 UNIT PO ×4 (09:49→21:35)
[2023-12-27] MEDS: Tamsulosin HCl 0.4 MG Capsule PO (09:49)
[2023-12-27 10:00] VITALS: PULSE 119
[2023-12-27 10:16] VITALS: BP 131/76; PULSE 119
[2023-12-27] MEDS: Metoprolol Tartrate 25 MG Tablet PO ×2 (10:16→21:34)
[2023-12-27] MEDS: Vancomycin 125 MG/5 ML Susp PO.SYRINGE PO ×2 (12:40→17:54)
[2023-12-27 18:00] VITALS: BP 120/77; PULSE 92; RESP 18; TEMP 36.3; O2SAT 92
[2023-12-27] MEDS: DULoxetine Hcl 30 MG Capsule 90 MG PO (21:33)
[2023-12-27 21:34] VITALS: BP 118/67; PULSE 90
[2023-12-27] MEDS: Atorvastatin Calcium 20 MG Tablet PO (21:34)
[2023-12-27] MEDS: Gabapentin 800 MG Tablet PO (21:35)
[2023-12-27] MEDS: oxyCODONE 5 MG Tablet 10 MG PO (21:35)
[2023-12-27] MEDS: tiZANidine HCl 2 MG Tablet 4 MG PO (21:35)
[2023-12-28] MEDS: Vancomycin 125 MG/5 ML Susp PO.SYRINGE PO ×5 (01:05→23:50)
[2023-12-28 06:28] VITALS: BP 121/74; PULSE 82; RESP 18; TEMP 36.3; O2SAT 97
[2023-12-28] MEDS: Gabapentin 600 MG Tablet PO ×2 (06:30→13:39)
[2023-12-28 07:42] VITALS: O2SAT 97
[2023-12-28] MEDS: Nystatin 500,000 UNIT/5 ML PO.SYRINGE (WCH) 500000 UNIT PO ×4 (08:21→21:24)
[2023-12-28 08:22] VITALS: BP 121/74; PULSE 84
[2023-12-28] MEDS: Metoprolol Tartrate 25 MG Tablet PO ×2 (08:22→21:24)
[2023-12-28] MEDS: Tamsulosin HCl 0.4 MG Capsule PO (08:22)
[2023-12-28] MEDS: Potassium Chloride Oral Tablet 20 MEQ PO ×2 (08:22→17:09)
[2023-12-28] MEDS: predniSONE 20 MG Tablet PO (08:23)
[2023-12-28] MEDS: SimETHICONE 80 MG Chewable Tablet PO ×4 (08:23→21:17)
[2023-12-28] MEDS: Lactobacillis Acidophilus 1 CAP PO ×2 (08:23→21:16)
[2023-12-28] MEDS: APIXABAN 5 MG TABLET 10 MG PO ×2 (08:23→21:16)
[2023-12-28] MEDS: oxyCODONE 5 MG Tablet PO (13:39)
[2023-12-28 17:29] VITALS: BP 109/56; PULSE 90; RESP 16; TEMP 36.5; O2SAT 94
[2023-12-28] MEDS: DULoxetine Hcl 30 MG Capsule 90 MG PO (21:16)
[2023-12-28] MEDS: Atorvastatin Calcium 20 MG Tablet PO (21:17)
[2023-12-28] MEDS: tiZANidine HCl 2 MG Tablet 4 MG PO (21:18)
[2023-12-28] MEDS: Gabapentin 800 MG Tablet PO (21:22)
[2023-12-28] MEDS: oxyCODONE 5 MG Tablet 10 MG PO (21:22)
[2023-12-28 21:24] VITALS: BP 123/69; PULSE 85
[2023-12-29 06:00] VITALS: BP 123/81; PULSE 76; RESP 17; TEMP 36.4; O2SAT 96
[2023-12-29] MEDS: Vancomycin 125 MG/5 ML Susp PO.SYRINGE PO ×3 (06:12→18:07)
[2023-12-29] MEDS: Gabapentin 600 MG Tablet PO ×2 (06:24→13:06)
[2023-12-29 07:01] LABS: Anion Gap 6 (5-15); BUN 10 mg/dL (7-18); BUN/Creat Ratio 16.6 RATIO (10-20); Calcium,Total 8.7 mg/dL (8.5-10.1); Chloride 110 mmol/L (98-107); EST Glomerular Filtration Rate 162 mL/min (>60); Est Glom Filt Rate - Afr Amer 195 mL/min (>60); Glucose 95 mg/dL (74-106); Potassium 3.5 mmol/L (3.5-5.1); Sodium Level 143 mmol/L (136-145)
[2023-12-29] MEDS: SimETHICONE 80 MG Chewable Tablet PO ×4 (08:24→21:24)
[2023-12-29] MEDS: Potassium Chloride Oral Tablet 20 MEQ PO (08:24)
[2023-12-29] MEDS: Lactobacillis Acidophilus 1 CAP PO ×2 (08:24→21:25)
[2023-12-29] MEDS: Tamsulosin HCl 0.4 MG Capsule PO (08:24)
[2023-12-29] MEDS: predniSONE 20 MG Tablet PO (08:24)
[2023-12-29 08:25] VITALS: PULSE 76
[2023-12-29] MEDS: cycloBENZAPRine HCl 10 MG Tablet PO (08:25)
[2023-12-29] MEDS: Metoprolol Tartrate 25 MG Tablet PO ×2 (08:25→21:24)
[2023-12-29] MEDS: APIXABAN 5 MG TABLET 10 MG PO ×2 (08:25→21:25)
[2023-12-29] MEDS: Nystatin 500,000 UNIT/5 ML PO.SYRINGE (WCH) 500000 UNIT PO ×4 (08:26→21:23)
[2023-12-29 10:00] VITALS: O2SAT 95
--- NOTE | 2023-12-29 11:25 | PCM.PROGNOTE ---
Subjective Subjective Afebrile VSS -heart rate is better with the addition of a beta-amber to his drug regimen. Over the past 36 hours it has ranged from 76-98. He has better exercise tolerance. Maintaining appropriate oxygen saturation on RA Oral intake - FOOD good FLUIDS good Discussed with nursing - no problems that need addressed Reviewed the THERAPY notes Medication list reviewed. He tells me that his R foot is feeling much better. The diarrhea is slowing down but, stool is still liquidy. Denies lightheadedness, chest pain, palpitations, shortness of breath at rest. Shortness of breath with exertion has improved with the addition of the beta-amber and better control of the heart rate. Denies nausea/vomiting/abdominal pain, dysuria and calf pain. BMP today shows a sodium of 143, potassium of 3.5, BUN of 10 and a creatinine of 0.6. Hemoglobin is 11.4 and stable. Objective Data Objective Data Vital Signs: Vital Signs Temp Pulse Resp BP Pulse Ox O2 Del Method O2 Flow Rate 97.5 F L 76 17 123/81 H 96 Room Air 2 12/29/23 06:00 12/29/23 08:25 12/29/23 06:00 12/29/23 06:00 12/29/23 06:00 12/29/23 06:00 12/28/23 07:42 FiO2 21 12/23/23 21:58 Oxygen Flow Rate (L/min) 2 Oxygen Delivery Method Room Air Weight: 311 lb 4.683 oz Body Mass Index (BMI) 41.1 Intake & Output: Intake and Output for Last 24 Hours 12/27/23 12/28/23 12/29/23 23:59 23:59 23:59 Intake Total 2060 / 2060 1550 / 1550 480 / 480 Output Total 3050 / 3050 1900 / 1900 700 / 700 Balance -990 / -990 -350 / -350 -220 / -220 Lab / Micro Data 12/29/23 11:46 12/29/23 05:45 Labs: Laboratory Results - last 24 hr 12/29/23 05:45: Sodium 143, Potassium 3.5, Chloride 110 H, Carbon Dioxide 27.0, Anion Gap 6, BUN 10, Creatinine 0.60 L, Estim Creat Clear Calc 253.80, Est GFR (MDRD) Af Amer 195, Est GFR (MDRD) Non-Af 162, BUN/Creatinine Ratio 16.6, Glucose 95, Calcium 8.7 Micro: Microbiology 12/27/23 05:57 Stool C. difficile GDH Antigen & Toxins - Final 12/27/23 05:57 Stool Clostridioides difficile (PCR) - Final Physical Exam Const alert, oriented x3 and no apparent distress General Appearance: cooperative HEENT moist oral mucous membranes Resp clear to auscultation bilaterally Cardio regular rate, regular rhythm, no murmurs, no rub and no gallops Cardio Narrative: No ectopy. Tachycardia has resolved with the addition of metoprolol to the drug regimen. GI normal to inspection, nondistended, normoactive bowel sounds, soft to palpation and non-tender GI Narrative: No guarding with palpation. Bowel sounds are not hyperactive. Extremity no calf tenderness General Extremity: Negative for edema Skin General Skin Exam: no breakdown Rashes: no rashes Wound Narrative: Incisions are intact with no dehiscence, no purulent discharge and no significant jorgito-incisional erythema. Psych affect normal Assessment & Plan Assessment/Plan (1) Physical debility: (2) Myelopathy concurrent with and due to spinal stenosis of thoracic region: (3) Myelopathy concurrent with and due to spinal stenosis of cervical region: (4) Radicular pain of both lower extremities: (5) Neuropathy: (6) Neurogenic bladder: (7) Status post laminectomy with spinal fusion: (8) Acute blood loss as cause of postoperative anemia: (9) Hypokalemia: (10) Bilateral pulmonary embolism: (11) Obstructive sleep apnea: (12) C. difficile colitis: (13) Acute gouty arthritis: (14) Hyperuricemia: PLAN: Plan 1. Continue therapy 2. Add Questran to the current drug regimen. 3. Check a UA today and an H&H-reviewed the UA had 0-5 WBCs and 1+ bacteria but it was a clean-catch. he is AF and asymptomatic so no tx at this time. IF he has a fever or becomes symptomatic with dysuria or frequency will straight cath for a UA. Charges/Coding Visit Charges Inpatient E&M: 91488 Subs Hosp L1
[2023-12-29 11:51] LABS: Hematocrit 36.8 % (40-54); Hemoglobin 11.4 g/dL (13.0-16.5)
[2023-12-29] MEDS: Cholestyramine/Sucrose 4 GM/PACKET PO ×2 (12:03→18:05)
[2023-12-29] MEDS: Potassium Chloride Oral Tablet 20 MEQ 40 MEQ PO (12:04)
[2023-12-29] MEDS: oxyCODONE 5 MG Tablet PO (13:06)
[2023-12-29 15:47] LABS: Mucous, Urine 0 SEEN /hpf (<or=2+); Red Blood Cells-Urine 0 SEEN /hpf (0-5); Squamous Epithelial Cells - UA 0 SEEN /hpf (0-5)
[2023-12-29 15:52] LABS: Color, Urine Straw (Yellow); Glucose, Dipstick Normal (Normal); Ketone-Dipstick Negative (Negative); Leukocyte Esterase-Dipstick 25 /ul (Negative); Nitrite-Dipstick Negative (Negative); Occult Blood-Urine Negative /ul (Negative); Protein-Dipstick Negative (Negative); Specific Gravity, Urine 1.015 (1.002-1.030); Urine Bilirubin Dipstick Negative (Negative); Urine Clarity Clear (Clear); Urine Urobilinogen Normal (Normal)
[2023-12-29 16:11] LABS: Bacteria 1+ /hpf (None Seen); White Blood Cells 0-5 SEEN /hpf (0-5)
[2023-12-29 18:00] VITALS: BP 148/91; PULSE 80; RESP 17; TEMP 36.3; O2SAT 96
[2023-12-29 21:24] VITALS: PULSE 95
[2023-12-29] MEDS: tiZANidine HCl 2 MG Tablet 4 MG PO (21:24)
[2023-12-29] MEDS: Atorvastatin Calcium 20 MG Tablet PO (21:24)
[2023-12-29] MEDS: Senna/Docusate Sodium 1 Tablet 2 TABLET PO (21:25)
[2023-12-29] MEDS: oxyCODONE 5 MG Tablet 10 MG PO (21:26)
[2023-12-29] MEDS: DULoxetine Hcl 30 MG Capsule 90 MG PO (21:26)
[2023-12-29] MEDS: Gabapentin 800 MG Tablet PO (21:41)
[2023-12-29 22:00] VITALS: BP 136/88; PULSE 71; O2SAT 99
[2023-12-30] MEDS: Vancomycin 125 MG/5 ML Susp PO.SYRINGE PO ×4 (00:04→16:58)
[2023-12-30 06:00] VITALS: BP 139/93; PULSE 98; RESP 18; TEMP 36.6; O2SAT 97
[2023-12-30] MEDS: Gabapentin 600 MG Tablet PO ×2 (06:12→14:32)
[2023-12-30 07:39] VITALS: BP 139/93; PULSE 98
[2023-12-30] MEDS: Lactobacillis Acidophilus 1 CAP PO ×2 (07:39→21:02)
[2023-12-30] MEDS: Metoprolol Tartrate 25 MG Tablet PO ×2 (07:39→21:02)
[2023-12-30] MEDS: Tamsulosin HCl 0.4 MG Capsule PO (07:39)
[2023-12-30] MEDS: SimETHICONE 80 MG Chewable Tablet PO ×4 (07:39→21:02)
[2023-12-30] MEDS: APIXABAN 5 MG TABLET 10 MG PO (07:39)
[2023-12-30] MEDS: Nystatin 500,000 UNIT/5 ML PO.SYRINGE (WCH) 500000 UNIT PO ×3 (07:40→21:03)
[2023-12-30 07:58] VITALS: O2SAT 97
[2023-12-30] MEDS: cycloBENZAPRine HCl 10 MG Tablet PO (11:03)
[2023-12-30] MEDS: Cholestyramine/Sucrose 4 GM/PACKET PO ×2 (11:03→16:56)
[2023-12-30] MEDS: oxyCODONE 5 MG Tablet PO (14:36)
[2023-12-30 18:00] VITALS: BP 141/85; PULSE 85; RESP 18; TEMP 36.6; O2SAT 99
[2023-12-30] MEDS: oxyCODONE 5 MG Tablet 10 MG PO (21:01)
[2023-12-30] MEDS: DULoxetine Hcl 30 MG Capsule 90 MG PO (21:01)
[2023-12-30 21:02] VITALS: BP 132/85; PULSE 97
[2023-12-30] MEDS: Gabapentin 800 MG Tablet PO (21:02)
[2023-12-30] MEDS: tiZANidine HCl 2 MG Tablet 4 MG PO (21:02)
[2023-12-30] MEDS: Atorvastatin Calcium 20 MG Tablet PO (21:02)
[2023-12-30] MEDS: APIXABAN 5 MG TABLET PO (21:34)
[2023-12-31] MEDS: Vancomycin 125 MG/5 ML Susp PO.SYRINGE PO ×4 (00:37→17:19)
[2023-12-31 06:00] VITALS: BP 147/75; PULSE 86; RESP 18; TEMP 36.8; O2SAT 97
[2023-12-31] MEDS: Gabapentin 600 MG Tablet PO ×2 (06:01→14:08)
[2023-12-31 07:50] VITALS: BP 147/75; PULSE 86
[2023-12-31] MEDS: SimETHICONE 80 MG Chewable Tablet PO ×4 (07:50→21:39)
[2023-12-31] MEDS: Metoprolol Tartrate 25 MG Tablet PO ×2 (07:50→21:39)
[2023-12-31] MEDS: Tamsulosin HCl 0.4 MG Capsule PO (07:50)
[2023-12-31] MEDS: Lactobacillis Acidophilus 1 CAP PO ×2 (07:50→21:38)
[2023-12-31] MEDS: oxyCODONE 5 MG Tablet PO (07:54)
--- NOTE | 2023-12-31 10:57 | PCM.PROGNOTE ---
Subjective Subjective Afebrile VSS - Maintaining appropriate oxygen saturation on RA Oral intake - FOOD good FLUIDS good HAd a formed BM today for the first time since admission to rehab. Discussed with nursing - no problems that need addressed Reviewed the THERAPY notes - ambulating with a cane today. Medication list reviewed. Tells me that pain is adequately controlled. Denies lightheadedness, SOB, cough, dysuria, N/V. Diarrhea is much improved. He feels as though he is completely emptying his bladder. Anxious to get home. Sleeping pretty well at night. Good appetite. The pain over the dorsum of the right foot has resolved with 3 days of prednisone. Objective Data Objective Data Vital Signs: Vital Signs Temp Pulse Resp BP Pulse Ox O2 Del Method O2 Flow Rate 98.2 F 86 18 147/75 H 97 Room Air 2 12/31/23 06:00 12/31/23 07:50 12/31/23 06:00 12/31/23 07:50 12/31/23 06:00 12/31/23 06:00 12/28/23 07:42 FiO2 21 12/23/23 21:58 Oxygen Flow Rate (L/min) 2 Oxygen Delivery Method Room Air Weight: 311 lb 4.683 oz Body Mass Index (BMI) 41.1 Intake & Output: Intake and Output for Last 24 Hours 12/29/23 12/30/23 12/31/23 23:59 23:59 23:59 Intake Total 2040 / 2040 1290 / 1790 1600 / 1600 Output Total 1000 / 1000 1100 / 1400 1300 / 1300 Balance 1040 / 1040 190 / 390 300 / 300 Lab / Micro Data 12/29/23 11:46 12/29/23 05:45 Micro: Microbiology 12/27/23 05:57 Stool C. difficile GDH Antigen & Toxins - Final 12/27/23 05:57 Stool Clostridioides difficile (PCR) - Final Physical Exam Const alert, oriented x3 and no apparent distress General Appearance: cooperative Resp normal respiratory effort and normal air movement Effort and Inspection: Negative for tachypneic Cardio regular rate, regular rhythm, no murmurs, no rub and no gallops Cardio Narrative: No ectopy GI normal to inspection, nondistended, normoactive bowel sounds, soft to palpation and non-tender GI Narrative: BS's are not hyperactive. No guarding with palpation Extremity no calf tenderness Extremity Narrative: Edema of the LE's has improved since admission. Skin Wound Narrative: Incisions are intact with no dehiscence, jorgito-incisional erythema or purulent discharge. Psych thought process normal and cooperative Appearance: appropriate Assessment & Plan Assessment/Plan (1) Physical debility: (2) Myelopathy concurrent with and due to spinal stenosis of thoracic region: (3) Myelopathy concurrent with and due to spinal stenosis of cervical region: (4) Radicular pain of both lower extremities: (5) Neuropathy: (6) Status post laminectomy with spinal fusion: (7) Acute blood loss as cause of postoperative anemia: (8) Bilateral pulmonary embolism: (9) C. difficile colitis: PLAN: Plan 1. Continue therapy 2. Anticipate discharge over the weekend 3. Home O2 being arranged by [facility] 4. Will get a sleep study when he is able to get insurance......will wear O2 at 2 LPM anytime he is sleeping until the sleep study can be done and he is able to get treatment. 5. Will need follow up with PCP.......I recommended [facility] for follow up. Charges/Coding Visit Charges Inpatient E&M: 21452 Subs Hosp L1
[2023-12-31] MEDS: Cholestyramine/Sucrose 4 GM/PACKET PO ×2 (11:25→17:19)
[2023-12-31] MEDS: cycloBENZAPRine HCl 10 MG Tablet PO (11:26)
[2023-12-31] MEDS: Acetaminophen 500 MG Tablet 1000 MG PO (14:26)
[2023-12-31 17:36] VITALS: BP 142/87; PULSE 105; RESP 18; TEMP 36.6; O2SAT 96
[2023-12-31] MEDS: FLU VACC 2024-25(6MOS UP)/PF 45 MCG/0.5 ML SYRINGE IM (17:47)
[2023-12-31 21:00] VITALS: PULSE 105; RESP 18
[2023-12-31] MEDS: Gabapentin 800 MG Tablet PO (21:38)
[2023-12-31] MEDS: oxyCODONE 5 MG Tablet 10 MG PO (21:38)
[2023-12-31] MEDS: DULoxetine Hcl 30 MG Capsule 90 MG PO (21:38)
[2023-12-31] MEDS: tiZANidine HCl 2 MG Tablet 4 MG PO (21:38)
[2023-12-31 21:39] VITALS: BP 142/87; PULSE 105
[2023-12-31] MEDS: Atorvastatin Calcium 20 MG Tablet PO (21:39)
[2024-01-01] MEDS: Vancomycin 125 MG/5 ML Susp PO.SYRINGE PO ×4 (00:27→17:25)
[2024-01-01 06:00] VITALS: BP 122/87; PULSE 97; RESP 18; TEMP 36.8; O2SAT 95
[2024-01-01] MEDS: Gabapentin 600 MG Tablet PO ×2 (06:32→14:39)
[2024-01-01 07:49] VITALS: BP 122/87; PULSE 97
[2024-01-01] MEDS: Metoprolol Tartrate 25 MG Tablet PO (07:49)
[2024-01-01] MEDS: SimETHICONE 80 MG Chewable Tablet PO ×4 (07:49→21:47)
[2024-01-01] MEDS: Tamsulosin HCl 0.4 MG Capsule PO (07:49)
[2024-01-01] MEDS: Lactobacillis Acidophilus 1 CAP PO ×2 (07:49→21:49)
[2024-01-01] MEDS: oxyCODONE 5 MG Tablet PO (07:52)
[2024-01-01] MEDS: Cholestyramine/Sucrose 4 GM/PACKET PO ×2 (11:40→17:25)
[2024-01-01] MEDS: Acetaminophen 500 MG Tablet 1000 MG PO (11:43)
--- NOTE | 2024-01-01 13:04 | CASEMGMT ---
Social Work IDT met with patient and sister for Team meeting. Discussed patient's progress in PT/OT/SN. SW offered for pt to set DC date. Pt requesting to DC tomorrow, 01/01. IDT agreeable. Pt already spoke with [employer] to pay for overnight O2. Family to transport pt. Pt will pursue sleep study and therapy once he has insurance. No other needs noted. Plan: DC home with and family support 01/01, overnight O2 ASHLEY Grimes [employer]ACEMENT COUNSEL[employer]
[2024-01-01 18:00] VITALS: BP 118/77; PULSE 103; RESP 16; TEMP 36.2; O2SAT 97
--- NOTE | 2024-01-01 18:01 | PN_ITS ---
Subjective Subjective Rafita was seen on team rounds today. His father Mario and sister Lurdes were present in the room and his Valerie participated by phone. Afebrile Heart rates are increasing again. Blood pressure is ranged from 122/87 to 142/87 for the past 24 hours. Pulse ox on room air while awake is in the high 90s. formed BM today Med list reviewed - Sleeping pretty well at night. Compliant with the oxygen while sleeping. Denies lightheadedness, chest pain, shortness of breath, cough, nausea/vomiting/abdominal pain/diarrhea, dysuria and calf pain. Objective Data Objective Data Vital Signs: Vital Signs Temp Pulse Resp BP Pulse Ox O2 Del Method O2 Flow Rate 98.3 F 97 18 122/87 H 95 Room Air 2 01/01/24 06:00 01/01/24 07:49 01/01/24 06:00 01/01/24 07:49 01/01/24 06:00 01/01/24 10:00 12/28/23 07:42 FiO2 21 12/23/23 21:58 Oxygen Flow Rate (L/min) 2 Oxygen Delivery Method Room Air Weight: 311 lb 4.683 oz Body Mass Index (BMI) 41.1 Intake & Output: Intake and Output for Last 24 Hours 12/30/23 12/31/23 01/01/24 23:59 23:59 23:59 Intake Total 1290 / 1790 3600 / 3600 1150 / 1150 Output Total 1100 / 1400 2675 / 2675 1615 / 1615 Balance 190 / 390 925 / 925 -465 / -465 Lab / Micro Data 12/29/23 11:46 12/29/23 05:45 Micro: Microbiology 12/27/23 05:57 Stool C. difficile GDH Antigen & Toxins - Final 12/27/23 05:57 Stool Clostridioides difficile (PCR) - Final Physical Exam Const alert, oriented x3 and no apparent distress Constitutional Narrative: Stood up easily from the recliner with no assist needed. General Appearance: cooperative HEENT head/scalp atraumatic Eyes PERRL and EOMs intact bilaterally Eyes Narrative: No scleral icterus, no conjunctival injection, no discharge from the eyes. Neck Neck Narrative: [place] J collar is in place and will remain in place until Dr. Flannery tells him it is okay to remove the collar. Resp normal respiratory effort, normal air movement and clear to auscultation bilaterally Resp Narrative: No conversational dyspnea. No cough. Effort and Inspection: Negative for tachypneic Cardio regular rhythm, no murmurs, no rub, no gallops and peripheral pulses 2+ throughout Cardio Narrative: HR is mildly elevated at times. Denies palpitations, CP and ARMANDO at DC. GI normal to inspection, nondistended, normoactive bowel sounds, soft to palpation and non-tender GI Narrative: No guarding with palpation. BS's are not hyperactive. Having formed BM's now. Extremity no calf tenderness General Extremity: Negative for edema Skin General Skin Exam: no breakdown Rashes: no rashes Wound Narrative: The cervical and thoracic incisions are healing well. Talisha have been removed. There is no dehiscence. There is no jorgito-incisional erythema, no jorgito-incisional swelling and no discharge. Neuro CN's II-XII intact bilaterally Neuro Narrative: Strength of the lower extremities has significantly improved since admission however he still has bilateral lower extremity weakness, right greater than left. Continues to have some tingling/paresthesias in both lower extremities. Denies muscle spasms. Urine retention secondary to neurogenic bladder has resolved. Psych affect normal and denies suicidal ideation Psych Narrative: Makes good eye contact with me when we are speaking. Sleeping well at night and has a good appetite.Does not appear anxious. Affect is not flat. Appearance: appropriate Attitude: No agitated Assessment & Plan Assessment/Plan (1) Physical debility: (2) Myelopathy concurrent with and due to spinal stenosis of thoracic region: (3) Myelopathy concurrent with and due to spinal stenosis of cervical region: (4) Radicular pain of both lower extremities: (5) Neuropathy: (6) Status post laminectomy with spinal fusion: (7) Acute blood loss as cause of postoperative anemia: (8) Bilateral pulmonary embolism: (9) HIT (heparin-induced thrombocytopenia): (10) C. difficile colitis: (11) Acute gouty arthritis: (12) Anxiety and depression: (13) Chronic anticoagulation: PLAN: Continue Eliquis for at least 3 months for provoked VTE.......he had BL PE's with R heart strain and tachycardia so may want to consider continuing for 6 months. PLAN: Plan 1. Plan discharge home tomorrow 2. [facility] 3. Patient will call Dr. Flannery's office to schedule a follow-up appointment. 4. Will resume outpatient PT/OT and obtain an overnight split sleep study when he is able to obtain insurance 5. Prescriptions faxed to [facility] pharmacy in [place] 6. Finish 5 more days of oral vancomycin 7. Transition to metoprolol XL 50 mg daily Charges/Coding Visit Charges Inpatient E&M: 13263 [facility] H[facility] L1
--- NOTE | 2024-01-01 18:02 | DCINST_ITS ---
Discharge Instructions Diet Discharge Diet: - (Low-salt, low-fat) Activity Discharge Activity: May Not Drive, May Shower and - (use a wheeled walker or a cane for ambulation. A walker would be safer when you are out in the community. The cane is OK for in your house. ) Weight Bearing Status: Full weight bearing Keep extremity elevated above heart level: Legs Dressing / Incision Call your doctor if your incision/area has: Continuous Slow Oozing, Sudden Increased Bleeding, Increased Pain/ Swelling, Increased Redness, Foul Smelling Discharge and Swelling at the incision site Call your doctor if you observe: Fever of 101 or Higher, Shortness of breath, Dizziness, Fainting spells, Swelling in the ankles, Chest pain, Increased palpitations (irregular heartbeat), Calf discomfort and Uncontrolled pain Suture Line Care: Avoid Pulling/Pushing and Avoid Pinching/Bending Cleanse incision/area with: Soap & Water Additional Dressing/Incision Instructions:: No dressing needed. Follow Up Care Please Follow Up With: Saúl Flannery DO When: You will need to call to make an appt. Test Results: Test results from this visit will be discussed in further detail at your follow- up appointment, if applicable. Pending Tests Upon Discharge: none Discharge Plan Admission Admit Date/Time: 12/23/23 17:32 Primary Reason for Your Visit: Debility due to spinal canal stenosis S/P laminectomy and fusion Attending Provider: Sis Cooper Instructions Patient Instructions: Caring for Your Incision Additional Instructions / Restrictions: 1. Do NOT sit for longer than 1 hour without getting up and taking a walk around the house. Sitting for too long makes you stiff and painful. 2. SPINAL PRECAUTIONS: No bending at the waist No lifting more than 5 lbs No twisting 3. Ice can be very helpful for pain control. It helps to decrease inflammation. 4. Please call the sleep lab to schedule an appt for a sleep study when you have insurance. Following the sleep study you will follow up with a sleep specialist to discuss the results of the study and prescribe treatment if needed. In the meantime you will need to wear oxygen at 2 LPM when ever you are sleeping. 5. You have been through a lot and your life has changed in many ways. It is a normal thing to be depressed about some of the changes. That being said YOU ARE WALKING, YOU ARE ABLE TO URINATE WITHOUT RETAINING AND YOU ARE GETTING BETTER EVERY DAY! I have increased the dose of the Cymbalta (Duloxetine) from 60m mg daily to 90 mg daily. This drug not only treats depression it helps some people lose weight and it helps with chronic pain. 6. You had been taking Lisinopril/hydrochlorothiazide for high blood pressure. The blood clots in the lungs were causing your heart to race when you were exe rting yourself making you short of breath with exertion. I switched the blood pressure medications to a drug called Metoprolol. Metoprolol helps to slow the heart rate down so that you are not getting short of breath with exertion. Your blood pressure is still mildly elevated at times but, this may be due to pain, excitement about going home and stress. I suggest you get a BP cuff and take your BP a couple times a day at different times (at rest and after exertion) and keep a recorder to bring to your PCP appt. the blood clots in the lungs will gradually dissolve. Your body will do that. The anticoagulant (Eliquis, also called Apixaban) does not dissolve the clots.....it prevents the existing clots from getting bigger and prevents development of new clots. You will need to take the anticoagulant for 3-6 months. 7. Losing weight definitely helps with chronic back pain. Less weight puts less stress on the back and less stress on joints. Your BMI (body mass index) is currently 41. I would like to see you get the BMI down to 30. Losing weight is a marathon, not a sprint.......be patient and be happy with losing about 1 to 1 and 1/2 pounds a week.........this helps you to change your eating habits so that you do not gain weight again going forward. Regular exercise is important to maintain muscle strength and flexibility. A strong core is very important in helping support the spine. 8. Do NOT be tempted to overdo so that you get better faster. If you overdo you will have more pain and you will not want to do the exercise and it can actually set you back. 9. IF you or your family have any questions after you leave rehab please do not hesitate to call me. Let me know If I can help with anything after you leave. OFFICE: [phone] CELL: [phone] NURSES STATION ON REHAB: [phone] Discharge Orders/Prescriptions Prescriptions: New acetaminophen 500 mg Tablet 1,000 mg PO Q8H PRN PRN (Reason: Pain Score 1-10) Qty: 1 0RF cholestyramine (with sugar) 4 gram Powder In Packet 1 ea PO BID@1100,1700 Qty: 20 0RF L.acidoph,saliva-B.bif-S.therm 175 mg Capsule 1 cap PO BID Qty: 28 0RF duloxetine 30 mg capsule,delayed release(DR/EC) 30 mg PO DAILY Qty: 30 3RF Rx Instructions: Take this 30 mg cap with the 60 mg cap once a day vancomycin 25 mg/mL recon soln 125 mg PO Q6H Qty: 100 0RF Rx Instructions: 5 cc every 6 hrs until gone. metoprolol succinate 50 mg tablet extended release 24 hr 50 mg PO DAILY Qty: 30 0RF vancomycin 125 mg capsule 125 mg PO Q6H Qty: 20 0RF Rx Instructions: 1 every 6 hours until gone Continued rosuvastatin 10 mg tablet 10 mg PO DAILY cyclobenzaprine 10 mg tablet 10 mg PO TID PRN (Reason: muscle spasm) Qty: 20 0RF tamsulosin 0.4 mg capsule 0.4 mg PO DAILY Qty: 30 0RF gabapentin 300 mg capsule 600 mg PO Q8H Qty: 90 0RF duloxetine 60 MG capsule 60 mg PO DAILY Qty: 1 0RF Rx Instructions: take 30 mg + 60 mg daily Changed oxycodone 5 mg tablet 5 - 10 mg PO Q4H 7 Days Qty: 42 0RF Discontinued cyclobenzaprine 10 mg tablet 10 mg PO TID PRN PRN (Reason: muscle spasm) lisinopril-hydrochlorothiazide 10-12.5 mg tablet 1 tab PO DAILY sennosides-docusate sodium [Senexon-S] 8.6-50 mg tablet 2 tab-cap PO BID Referrals / Follow Up: Kath Blankenship [Other] ((Dials Inspector) -- PCP requested referral PATIENT TO MAKE APPT) Reba Bowie [Other] - 01/08/24 1:00 pm ([facility]) Saúl Flannery DO [Non-Staff] - (PATIENT TO MAKE APPT) Disposition Disposition (needs filled in before D/C Order can be placed): Home, Self Care
[2024-01-01] MEDS: oxyCODONE 5 MG Tablet 10 MG PO (21:46)
[2024-01-01] MEDS: Gabapentin 800 MG Tablet PO (21:47)
[2024-01-01] MEDS: Atorvastatin Calcium 20 MG Tablet PO (21:47)
[2024-01-01] MEDS: APIXABAN 5 MG TABLET PO (21:47)
[2024-01-01] MEDS: DULoxetine Hcl 30 MG Capsule 90 MG PO (21:49)
[2024-01-01] MEDS: tiZANidine HCl 2 MG Tablet 4 MG PO (21:51)
[2024-01-01 21:56] VITALS: BP 134/84; PULSE 91
[2024-01-01] MEDS: cycloBENZAPRine HCl 10 MG Tablet PO (21:56)
[2024-01-01] MEDS: Metoprolol(XL)Succ 50 MG Tablet PO (21:56)
[2024-01-02] MEDS: Vancomycin 125 MG/5 ML Susp PO.SYRINGE PO ×3 (01:00→11:05)
[2024-01-02 06:00] VITALS: BP 124/88; PULSE 111; RESP 20; TEMP 36.7; O2SAT 98
[2024-01-02] MEDS: Gabapentin 600 MG Tablet PO (06:01)
[2024-01-02] MEDS: APIXABAN 5 MG TABLET PO (08:01)
[2024-01-02] MEDS: SimETHICONE 80 MG Chewable Tablet PO (08:01)
[2024-01-02] MEDS: Lactobacillis Acidophilus 1 CAP PO (08:01)
[2024-01-02] MEDS: Tamsulosin HCl 0.4 MG Capsule PO (08:01)
[2024-01-02] MEDS: cycloBENZAPRine HCl 10 MG Tablet PO (08:03)
[2024-01-02 10:34] VITALS: BP 107/75; PULSE 108
[2024-01-02] MEDS: Metoprolol(XL)Succ 25 MG Tablet PO (10:34)
[2024-01-02] MEDS: Cholestyramine/Sucrose 4 GM/PACKET PO (10:35)
--- NOTE | 2024-01-02 10:35 | PCM.DC.SUM ---
Providers Date of Admission: 12/23/23 Date of Discharge: 01/02/24 Primary Care Physician: Reba Bowie OPERATER none Reason For Visit: SPINAL CORD COMPRESSION Diagnosis Discharge Diagnosis (1) Physical debility: Status: Acute Code(s): R53.81 - Other malaise (2) Myelopathy concurrent with and due to spinal stenosis of thoracic region: Status: Acute Code(s): M48.04 - Spinal stenosis, thoracic region; G99.2 - Myelopathy in diseases classified elsewhere (3) Myelopathy concurrent with and due to spinal stenosis of cervical region: Status: Acute Code(s): M48.02 - Spinal stenosis, cervical region; G99.2 - Myelopathy in diseases classified elsewhere (4) Radicular pain of both lower extremities: Status: Acute Code(s): M54.10 - Radiculopathy, site unspecified (5) Neuropathy: Status: Acute Code(s): G62.9 - Polyneuropathy, unspecified (6) Status post laminectomy with spinal fusion: Status: Acute Code(s): Z98.1 - Arthrodesis status Plan: 12/09/2023 at [facility] by Dr. Saúl Flannery. C5-T1 fusion with C5-C7 laminectomy and T10-T12 laminectomy and fusion. (7) Acute blood loss as cause of postoperative anemia: Status: Acute Code(s): D62 - Acute posthemorrhagic anemia Plan: Hemoglobin is 11.4 and stable at discharge. (8) Bilateral pulmonary embolism: Status: Acute Code(s): I26.99 - Other pulmonary embolism without acute cor pulmonale Plan: Venous ultrasounds of the lower extremities were negative for VTE. (9) HIT (heparin-induced thrombocytopenia): Status: Resolved Code(s): D75.829 - Heparin-induced thrombocytopenia, unspecified (10) Neurogenic bladder: Status: Resolved Code(s): N31.9 - Neuromuscular dysfunction of bladder, unspecified Plan: I suspect that the urinary retention was secondary to neurogenic bladder. He was placed on Flomax at [facility]. He passed a voiding trial while on rehab. Not sure the Flomax has anything to do with resolution of the urine retention. Plan on continuing Flomax for 1 month and then consider discontinuing. (11) C. difficile colitis: Status: Acute Code(s): A04.72 - Enterocolitis due to Clostridium difficile, not specified as recurrent Plan: Treated with 10 days of oral Vancomycin 125 mg Q6H, Questran and probiotics. Toxin was negative but, he had been on antibiotics at [facility] for urosepsis and had copious liquids stools with fecal incontinence. (12) Acute gouty arthritis: Status: Resolved Code(s): M10.9 - Gout, unspecified Plan: Resolved with 3 days of Prednisone 20 mg daily. Has known hyperuricemia but, has only 1-2 attacks of acute gouty arthritis yearly so no need to prophylax with allopurinol at this time. (13) Dyslipidemia: Status: Chronic Code(s): E78.5 - Hyperlipidemia, unspecified Plan: Continue Crestor. (14) Anxiety and depression: Status: Chronic Code(s): F41.9 - Anxiety disorder, unspecified; F32.A - Depression, unspecified Plan: Will continue duloxetine. The dose was increased from 60 mg (which is his home dose) to 90 mg for exacerbation of depression due to prolonged hospitalization with many complications and also increased to assist with management of chronic pain. (15) Hypokalemia: Status: Resolved Code(s): E87.6 - Hypokalemia Plan: HCTZ was discontinued and the Potassium was supplemented. (16) Abnormal LFTs: Status: Chronic Code(s): R79.89 - Other specified abnormal findings of blood chemistry Plan: due to hepatosteatosis? Would consider imaging the liver when he has insurance. (17) Hypertension: Status: Chronic Code(s): I10 - Essential (primary) hypertension Qualifiers: Hypertension type: primary hypertension Qualified Code(s): I10 - Essential (primary) hypertension Plan: Was on lisinopril/hydrochlorothiazide at admission to rehab which is his chronic medication for hypertension. He was transition to metoprolol for dyspnea on exertion due to tachycardia which is likely related to the bilateral pulmonary emboli. Will discharge on metoprolol XL 50 mg daily. Recommended he obtain a blood pressure cuff and check his blood pressure periodically as an outpatient and record the results to bring to his next PCP appointment. (18) Obstructive sleep apnea: Status: Chronic Code(s): G47.33 - Obstructive sleep apnea (adult) (pediatric) Plan: Diagnosed a few years ago but, never followed up for treatment. He needs a formal sleep study when he has insurance. In the interim he was ordered home O2 at 2LPMn anytime he is sleeping. (19) Morbid obesity: Status: Chronic Code(s): E66.01 - Morbid (severe) obesity due to excess calories Plan: Has lost 80 lbs in the past but, then gained it back after his dtr was born. Current BMI is 41. would like to see his BMI down to 30. Diet education was given while on rehab. Instructed in a low fat, carb controlled diet. Increasing Cymbalta to 90 mg may help with appetite control. (20) Chronic anticoagulation: Status: Acute Code(s): Z79.01 - [facility] (current) use of anticoagulants Plan: Continue Eliquis for at least 3 months for provoked VTE.......he had BL PE's with R heart strain and tachycardia so may want to consider continuing for 6 months. Plan 1. DC home. 2. Home O2 arranged thorough JACQU[facility]. 3. Finish 10 days of vancomycin 125 mg orally every 6 hours. Continue Questran for another 10 to 14 days and also continue probiotics for that amount of time. 4. Continue metoprolol XL 50 mg p.o. daily 5. Continue Eliquis 5 mg p.o. twice daily 6. Obtain an overnight split study for LENI when he has medical insurance. 7. will follow up with Reba Bowie at the [facility] for primary Care 8. Will need additional PT/OT when he has insurance. Until that time he will continue with the exercise program outlined by PT/OT on rehab. 9. Resume Crestor Medications at Discharge Home Medications rosuvastatin 10 mg tablet 10 mg PO DAILY Cholestrol 12/23/23 L.acidophil,salivari-Bifido bifidum-Strep thermoph 175 mg capsule 1 cap PO BID #28 caps 01/01/24 acetaminophen 500 mg tablet 1,000 mg (2 x 500 mg) PO Q8H PRN PRN Pain Score 1-10 #1 TAB 01/01/24 cholestyramine (with sugar) 4 gram powder for susp in a packet 1 ea PO BID@1100,1700 #20 ea 01/01/24 cyclobenzaprine 10 mg tablet 10 mg PO TID PRN muscle spasm #20 tabs 01/01/24 duloxetine 30 mg capsule,delayed release 30 mg PO DAILY #30 caps 01/01/24 duloxetine 60 mg capsule,delayed release 60 mg PO DAILY Depression #1 cap 01/01/24 gabapentin 300 mg capsule 600 mg (2 x 300 mg) PO Q8H Nerve pain #90 caps 01/01/24 oxycodone 5 mg tablet 5 - 10 mg (1 - 2 x 5 mg) PO Q4H Pain 1 week #42 tabs 01/01/24 tamsulosin 0.4 mg capsule 0.4 mg PO DAILY Urine retention #30 caps 01/01/24 metoprolol succinate 50 mg tablet,extended release 24 hr 50 mg PO DAILY #30 tabs 01/02/24 vancomycin 125 mg capsule 125 mg PO Q6H #20 caps 01/02/24 vancomycin 25 mg/mL oral solution 125 mg (5 mL) PO Q6H #100 mL 01/02/24 Hospital Course Operations - (C5-T1 fusion with C5-C7 laminectomy and T10-T12 laminectomy and fusion on 12/10/2023 at [facility] by Dr. Saúl Flannery) Procedures None Summary of Care Provided Minutes Spent on Discharge: 30 Hospital Course: CLAUDIO MARKS, is a 33 YO M with a PMH of anxiety/depression, hypertension ( was on Lisinopril/HCTZ as OP), untreated obstructive sleep apnea, chronic back pain, multiple thoracic disc herniations on MRI done in 2016 with compression of the cord at T5-T6 and T10-T11 with no signs of myelomalacia of the cord and L4-L5 mild endplate spondylosis with central disc herniation of extrusion type extending caudally causing indentation of the ventral aspect of the thecal sac with impingement of the left L5 nerve root in the left lateral recess also on a MRI done in 2017. He had been seeing a chiropractor, Dr. Claribel Ramey, and Dr. Graff from orthopedics. On 12/09/2023 he presented to [facility] complaining of back pain associated with bilateral leg weakness and numbness for the preceding few months. He had had several falls due to his legs giving out. At the time of presentation he was not able to move his legs at all. He denied any urine or fecal incontinence and had no saddle anesthesia but, he was having unrecognized urine retention and likely had urosepsis at admission to [facility]. [facility] initiated straight catheterization. MRI showed severe spinal canal stenosis at T10-T11, moderate to severe canal stenosis at C5-C6 and C6-C7 and moderate to severe stenosis at L3-L4. He was evaluated by orthopedic spine surgery. On 12/10/23 he had C5-T1 fusion with C5-C7 laminectomy, T10-T12 laminectomy and fusion. When he was initially taken to the OR the procedure had to be delayed due to hypotension. He was placed on Zak-Synephrine IV. He was also started on Antibiotics for urosepsis. With improvement in the BP Dr. Flannery was able to proceed with the surgery. Post op complications included BL PE. Venous ultrasounds of the lower extremities were negative. He developed HIT on Heparin and was transitioned to bivalirudin. Prior to discharge from [facility] he was transitioned to Eliquis and was taking 10 mg BID. After the appropriate loading doses were administered the dose was decreased to 5 mg BID. While at [facility] he was seen by PT/OT and acute inpt rehab was recommended at [place]. Prior to discharge he failed a voiding trial and was placed on Flomax by urology. He was transferred to [facility] inpt rehab on 12/23/23 for 3 hours of therapy daily to restore function/independence at or near his level prior to cord compression. Bruno catheter was in place at the time of transfer to [facility]. A few days after admission to rehab he passed a voiding trial and the Bruno was discontinued. UA at admission showed 0-5 WBCs per high-power field with 1+ bacteria. The urine was pale yellow and clear. He was afebrile. The white blood cell count was within normal limits. No antibiotics were indicated. Potassium was low at 3.0 and it was supplemented. Hydrochlorothiazide was discontinued. The creatinine was 0.64 at admission and is 0.6 at discharge. Hemoglobin was 10.4 at admission and prior to discharge was up to 11.4. On PE he had swelling of both LE's and compression was applied. The legs were elevated. Edema had resolved prior to DC from rehab. He was c/o some loose stool initially and this got worse and was associated with fecal incontinence fecal incontinence. Since he had been on antibiotics for urosepsis at a C DIFF was checked. The antigen was positive but, the toxin was negative. He denied any hx of C. DIFF in the past. He had just been on IV antibiotics for urosepsis. I felt he had C. Diff colitis even though the toxin was negative and treatment was initiated with oral vancomycin solution 125 mg p.o. every 6 hours, Questran twice daily and probiotics twice daily. After 4 days of treatment he had his first formed BM. He will continue oral Vancomycin to complete a 10 days course. Another complication on rehab was the development of pain in the dorsum of the R foot. I initially though this was likely radicular pain but, it failed to improve with increase in Gabapentin. lCaudio told me that it felt like the pain he gets with acute gout. Uric acid was checked and it was 7.8. It has been elevated in the past but, he has not been placed on allopurinol because he only has 1-2 episodes of acute gouty arthritis yearly and this can be treated with short courses of Prednisone or NSAID's. He was prescribed prednisone 20 mg daily for 3 days and the pain resolved. Claudio was having ARMANDO at presentation to rehab and he became tachycardic with exertion. I suspect the tachycardia was related to BL PE and possibly R heart strain. Lisinopril was discontinued and he was transitioned to Metoprolol. The ARMANDO resolved and at [place] the HR and BP are better controlled. He will be taking Metoprolol XL 50 mg daily at [place]. He has had no adverse reactions. An overnight trending pulse ox was obtained because of the hx of LENI diagnosed in the past but, never treated. The overnight trending pulse ox revealed desaturations and he was started on O2 at 2 LPM anytime he was sleeping. Prior to De he is sleeping well at night. He is more alert during the day. Home O2 was arranged through [email or web address]. When he is able to obtain insurance he will need a formal overnight split sleep study. The sleep lab is aware. Claudio did very well in therapy. At the time of discharge he is independent with eating and supervision/set up for grooming and upper body dressing. He is standby assist for lower body dressing, tub/shower transfer and toileting. He is mod I for toilet transfer. He is able to ascend/descend 8 steps at standby assist with 1 handrail and his hand on the opposite wall. He is able to do 10 sit to stands in 30 seconds using his upper extremities to push up. He has ambulated 450 feet on various surfaces with a front wheel walker at supervision. He has ambulated 120 feet at mod I while on the rehab unit with a FWW. He has ambulated with a straight cane at close CGA but, loses his balance as he fatigues and is somewhat unsteady. He will need additional PT/OT as an OP once he is able to secure medical insurance. The therapists have given him exercise regimens to do at home until he has insurance. He will follow-up with Reba Bowie NP at the [facility] for primary care. He is going to call Dr. Flannery's office to schedule a follow-up appointment. Physical Exam Const alert, oriented x3 and no apparent distress Constitutional Narrative: Stood up easily from the recliner with no assist needed. General Appearance: cooperative HEENT head/scalp atraumatic Eyes PERRL and EOMs intact bilaterally Eyes Narrative: No scleral icterus, no conjunctival injection, no discharge from the eyes. Neck Neck Narrative: [place] J collar is in place and will remain in place until Dr. Flannery tells him it is okay to remove the collar. Resp normal respiratory effort, normal air movement and clear to auscultation bilaterally Resp Narrative: No conversational dyspnea. No cough. Effort and Inspection: Negative for tachypneic Cardio regular rhythm, no murmurs, no rub, no gallops and peripheral pulses 2+ throughout Cardio Narrative: HR is mildly elevated at times. Denies palpitations, CP and ARMANDO at DC. GI normal to inspection, nondistended, normoactive bowel sounds, soft to palpation and non-tender GI Narrative: No guarding with palpation. BS's are not hyperactive. Having formed BM's now. Extremity no calf tenderness General Extremity: Negative for edema Skin General Skin Exam: no breakdown Rashes: no rashes Wound Narrative: The cervical and thoracic incisions are healing well. Talisha have been removed. There is no dehiscence. There is no jorgito-incisional erythema, no jorgito-incisional swelling and no discharge. Neuro CN's II-XII intact bilaterally Neuro Narrative: Strength of the lower extremities has significantly improved since admission however he still has bilateral lower extremity weakness, right greater than left. Continues to have some tingling/paresthesias in both lower extremities. Denies muscle spasms. Urine retention secondary to neurogenic bladder has resolved. Psych affect normal and denies suicidal ideation Psych Narrative: Makes good eye contact with me when we are speaking. Sleeping well at night and has a good appetite.Does not appear anxious. Affect is not flat. Appearance: appropriate Attitude: No agitated Weight / BMI Weight Weight: 311 lb 4.683 oz Body Mass Index (BMI) 41.1 ABG / Lab / Microbiology Data 12/29/23 11:46 12/29/23 05:45 Microbiology: Microbiology 12/27/23 05:57 Stool C. difficile GDH Antigen & Toxins - Final 12/27/23 05:57 Stool Clostridioides difficile (PCR) - Final D/C Instructions Discharge Diet: - (Low-salt, low-fat) Weight Bearing Status: Full weight bearing Keep extremity elevated above heart level: Legs Call your doctor if your incision/area has: Continuous Slow Oozing, Sudden Increased Bleeding, Increased Pain/ Swelling, Increased Redness, Foul Smelling Discharge and Swelling at the incision site Call your doctor if you observe: Fever of 101 or Higher, Shortness of breath, Dizziness, Fainting spells, Swelling in the ankles, Chest pain, Increased palpitations (irregular heartbeat), Calf discomfort and Uncontrolled pain Suture Line Care: Avoid Pulling/Pushing and Avoid Pinching/Bending Cleanse incision/area with: Soap & Water Additional Dressing/Incision Instructions: No dressing needed. Pending Tests Upon Discharge: none Please Follow Up With: Saúl Flannery DO When: You will need to call to make an appt. Meaningful Use Info Meaningful Use Meaningful Use Diagnoses (Choose all that apply): None applicable Ischemic Stroke Statin Dosing Therapy Reference: STATIN DOSE THERAPY REFERENCE: * Patients > 75 years receive moderate or high dose statin therapy. * Patients 75 years or YOUNGER should receive HIGH intensity statin dose unless contraindicated. You will be required to document reason for non-treatment if statin daily dose does not meet guidelines. HIGH DOSE STATIN THERAPY DAILY Atorvastatin > than or = to 40 mg Rosuvastatin > than or = to 20 mg Amlodipine + Atorvastatin > than or = to 2.5/40 mg Ezetimibe + Simvastatin 10/80 mg Simvastatin 80mg Discharge Plan Admission Admit Date/Time: 12/23/23 17:32 Primary Reason for Your Visit: Debility due to spinal canal stenosis S/P laminectomy and fusion Attending Provider: Sis Cooper Instructions Patient Instructions: Caring for Your Incision Additional Instructions / Restrictions: 1. Do NOT sit for longer than 1 hour without getting up and taking a walk around the house. Sitting for too long makes you stiff and painful. 2. SPINAL PRECAUTIONS: No bending at the waist No lifting more than 5 lbs No twisting 3. Ice can be very helpful for pain control. It helps to decrease inflammation. 4. Please call the sleep lab to schedule an appt for a sleep study when you have insurance. Following the sleep study you will follow up with a sleep specialist to discuss the results of the study and prescribe treatment if needed. In the meantime you will need to wear oxygen at 2 LPM when ever you are sleeping. 5. You have been through a lot and your life has changed in many ways. It is a normal thing to be depressed about some of the changes. That being said YOU ARE WALKING, YOU ARE ABLE TO URINATE WITHOUT RETAINING AND YOU ARE GETTING BETTER EVERY DAY! I have increased the dose of the Cymbalta (Duloxetine) from 60m mg daily to 90 mg daily. This drug not only treats depression it helps some people lose weight and it helps with chronic pain. 6. You had been taking Lisinopril/hydrochlorothiazide for high blood pressure. The blood clots in the lungs were causing your heart to race when you were exerting yourself making you short of breath with exertion. I switched the blood pressure medications to a drug called Metoprolol. Metoprolol helps to slow the heart rate down so that you are not getting short of breath with exertion. Your blood pressure is still mildly elevated at times but, this may be due to pain, excitement about going home and stress. I suggest you get a BP cuff and take your BP a couple times a day at different times (at rest and after exertion) and keep a recorder to bring to your PCP appt. the blood clots in the lungs will gradually dissolve. Your body will do that. The anticoagulant (Eliquis, also called Apixaban) does not dissolve the clots.....it prevents the existing clots from getting bigger and prevents development of new clots. You will need to take the anticoagulant for 3-6 months. 7. Losing weight definitely helps with chronic back pain. Less weight puts less stress on the back and less stress on joints. Your BMI (body mass index) is currently 41. I would like to see you get the BMI down to 30. Losing weight is a marathon, not a sprint.......be patient and be happy with losing about 1 to 1 and 1/2 pounds a week.........this helps you to change your eating habits so that you do not gain weight again going forward. Regular exercise is important to maintain muscle strength and flexibility. A strong core is very important in helping support the spine. 8. Do NOT be tempted to overdo so that you get better faster. If you overdo you will have more pain and you will not want to do the exercise and it can actually set you back. 9. IF you or your family have any questions after you leave rehab please do not hesitate to call me. Let me know If I can help with anything after you leave. OFFICE: [phone] CELL: [phone] NURSES STATION ON REHAB: [phone] Discharge Orders/Prescriptions Prescriptions: New acetaminophen 500 mg Tablet 1,000 mg PO Q8H PRN PRN (Reason: Pain Score 1-10) Qty: 1 0RF cholestyramine (with sugar) 4 gram Powder In Packet 1 ea PO BID@1100,1700 Qty: 20 0RF L.acidoph,saliva-B.bif-S.therm 175 mg Capsule 1 cap PO BID Qty: 28 0RF duloxetine 30 mg capsule,delayed release(DR/EC) 30 mg PO DAILY Qty: 30 3RF Rx Instructions: Take this 30 mg cap with the 60 mg cap once a day vancomycin 25 mg/mL recon soln 125 mg PO Q6H Qty: 100 0RF Rx Instructions: 5 cc every 6 hrs until gone. metoprolol succinate 50 mg tablet extended release 24 hr 50 mg PO DAILY Qty: 30 0RF vancomycin 125 mg capsule 125 mg PO Q6H Qty: 20 0RF Rx Instructions: 1 every 6 hours until gone Continued rosuvastatin 10 mg tablet 10 mg PO DAILY cyclobenzaprine 10 mg tablet 10 mg PO TID PRN (Reason: muscle spasm) Qty: 20 0RF tamsulosin 0.4 mg capsule 0.4 mg PO DAILY Qty: 30 0RF gabapentin 300 mg capsule 600 mg PO Q8H Qty: 90 0RF duloxetine 60 MG capsule 60 mg PO DAILY Qty: 1 0RF Rx Instructions: take 30 mg + 60 mg daily Changed oxycodone 5 mg tablet 5 - 10 mg PO Q4H 7 Days Qty: 42 0RF Discontinued cyclobenzaprine 10 mg tablet 10 mg PO TID PRN PRN (Reason: muscle spasm) lisinopril-hydrochlorothiazide 10-12.5 mg tablet 1 tab PO DAILY sennosides-docusate sodium [Senexon-S] 8.6-50 mg tablet 2 tab-cap PO BID Referrals / Follow Up: Kath Blankenship [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
== END 2024-01-02 12:30 | disposition home or self-care (01) | DRG 559 ==
PROVIDERS: Admitting Provider Internal Medicine; Referring Provider Internal Medicine; Visit Provider Internal Medicine
DX: Z47.89 Encounter for other orthopedic aftercare (principal); I26.99 Other pulmonary embolism without acute cor pulmonale; G99.2 Myelopathy in diseases classified elsewhere; A04.72 Enterocolitis due to Clostridium difficile, not specified as recurrent; Z68.41 Body mass index [BMI] 40.0-44.9, adult; D62 Acute posthemorrhagic anemia; D75.829 Heparin-induced thrombocytopenia, unspecified; I10 Essential (primary) hypertension; F32.A Depression, unspecified; M48.04 Spinal stenosis, thoracic region; M48.02 Spinal stenosis, cervical region; F17.210 Nicotine dependence, cigarettes, uncomplicated; G47.33 Obstructive sleep apnea (adult) (pediatric); M48.061 Spinal stenosis, lumbar region without neurogenic claudication; M54.10 Radiculopathy, site unspecified; F41.9 Anxiety disorder, unspecified; E87.6 Hypokalemia; M10.9 Gout, unspecified; E66.01 Morbid (severe) obesity due to excess calories; E78.5 Hyperlipidemia, unspecified; Z98.1 Arthrodesis status; Z79.899 Other long term (current) drug therapy; N31.9 Neuromuscular dysfunction of bladder, unspecified; Z79.01 Long term (current) use of anticoagulants; Z23 Encounter for immunization
CPT/HCPCS: 36415; 80048; 80053; 80061; 81001; 83735; 84100; 84550; 85014; 85018; 85027; 87493; 90656; 94668; 94762; 97110; 97116; 97162; 97166; 97530; 97535; 97802; 97803